=== PATIENT | female | born 1955 | race American Indian/Alaskan Native ===

== ENCOUNTER 2018-02-07 11:15 | Inpatient (IN) | payer OTHER ==
[2018-02-07 11:19] VITALS: BMI 17.7
--- NOTE | 2018-02-07 12:29 | ED PDOC ---
Arrival/HPI - General Chief Complaint: Lower Extremity Problem/Injury Time Seen by Provider: 02/07/18 11:47 Historian: Patient, Family (sister) - History of Present Illness Narrative History of Present Illness (Text): 02/07/18 12:26 62 year old female smoker, whose past medical history includes a alcohol abuse, heart defibrillator, and CVA, who presents to the ED complaining of swollen legs and abdomen x 1 week. Patient notes associated dyspnea upon exertion. Patient denies any fever, chills, nausea, vomiting, chest pain, abdominal pain, back pain, or neck pain. Time/Duration: 1 week Symptom Onset: Gradual Symptom Course: Unchanged Activities at Onset: Light Context: Home Past Medical History - Provider Review Nursing Documentation Reviewed: Yes - Infectious Disease Hx of Infectious Diseases: None - Tetanus Immunization Tetanus Immunization: Unknown - Cardiac Hx Cardiac Disorders: Yes Hx Hypertension: Yes Hx Pacemaker: Yes (with defibrillator/L side) - Pulmonary Hx Respiratory Disorders: Yes Hx Asthma: Yes - Neurological Hx Neurological Disorder: Yes HX Cerebrovascular Accident: Yes Hx Transient Ischemic Attacks (TIA): Yes - HEENT Hx HEENT Disorder: No - Renal Hx Renal Disorder: No - Endocrine/Metabolic Hx Endocrine Disorders: No - Hematological/Oncological Hx Blood Disorders: No - Integumentary Hx Dermatological Disorder: No - Musculoskeletal/Rheumatological Hx Musculoskeletal Disorders: No - Gastrointestinal Hx Gastrointestinal Disorders: No Other/Comment: ALCOHOLIC "FORMER DRINKER" PER PT. - Genitourinary/Gynecological Hx Genitourinary Disorders: No - Psychiatric Hx Psychophysiologic Disorder: No Hx Substance Use: No - Surgical History Other/Comment: L side pacemaker/defibrillator - Anesthesia Hx Anesthesia: Yes Hx Anesthesia Reactions: No Family/Social History - Physician Review Nursing Documentation Reviewed: Yes Family/Social History: Unknown Family HX Smoking Status: Light Smoker < 10 Cigarettes Daily Hx Alcohol Use: Yes Frequency of alcohol use: Daily Hx Substance Use: No Allergies/Home Meds Allergies/Adverse Reactions: Allergies No Known Allergies Allergy (Verified 11/19/17 08:17) Home Medications: Home Meds Medication Instructions Recorded Confirmed Aspirin [Aspirin Chewable] 1 tab PO DAILY 02/07/18 02/07/18 Carvedilol [Coreg] 1 tab PO BID 02/07/18 02/07/18 Ipratropium [Atrovent HFA] 2 puff IH QID 02/07/18 02/07/18 hydroCHLOROthiazide [Hydrodiuril] 1 tab PO DAILY 02/07/18 02/07/18 Review of Systems - Physician Review All systems were reviewed & negative as marked: Yes - Review of Systems Constitutional: Normal Eyes: Normal ENT: Normal Respiratory: Normal. absent: SOB, Cough Cardiovascular: Normal. absent: Chest Pain Gastrointestinal: Normal. absent: Abdominal Pain, Diarrhea, Nausea, Vomiting Genitourinary Female: Normal. absent: Dysuria, Frequency Musculoskeletal: Other (swollen legs and abdomen). absent: Back Pain, Neck Pain Skin: Normal. absent: Rash Neurological: Normal. absent: Headache Endocrine: Normal Hemo/Lymphatic: Normal Psychiatric: Normal Physical Exam Vital Signs Reviewed: Yes Vital Signs Temp Pulse Resp BP Pulse Ox 02/07/18 11:26 98.3 F 73 18 97/61 L 98 Temperature: Afebrile Blood Pressure: Hypotensive Pulse: Regular Respiratory Rate: Normal Appearance: Positive for: Well-Appearing, Non-Toxic, Comfortable Pain Distress: None Mental Status: Positive for: Alert and Oriented X 3 - Systems Exam Head: Present: Atraumatic, Normocephalic Pupils: Present: PERRL Extroacular Muscles: Present: EOMI Conjunctiva: Present: Normal Mouth: Present: Moist Mucous Membranes Neck: Present: Normal Range of Motion Respiratory/Chest: Present: Other (mild bilateral crackles at base). No: Respiratory Distress, Accessory Muscle Use Cardiovascular: Present: Regular Rate and Rhythm, Normal S1, S2. No: Murmurs Abdomen: Present: Distention. No: Tenderness, Peritoneal Signs Back: Present: Normal Inspection Upper Extremity: Present: Normal Inspection. No: Cyanosis, Edema Lower Extremity: Present: Edema (bilateral 2+ pitting edema) Neurological: Present: GCS=15, CN II-XII Intact, Speech Normal Skin: Present: Warm, Dry, Normal Color. No: Rashes Psychiatric: Present: Alert, Oriented x 3, Normal Insight, Normal Concentration Medical Decision Making ED Course and Treatment: 02/07/18 12:31 Impression: 62 year old female presents to the ED c/o swollen legs and abdomen. Plan: -- EKG -- Labs -- CXR -- US Lower extremities Progress Notes: 02/07/18 14:05 US Lower Extremities preliminary report, shows negative results for DVT. 02/07/18 15:12 CXR reviewed, shows: IMPRESSION: No active disease. 02/07/18 17:14 Case discussed with Cards: Dr. Kiran, who states given pt's low bp and Xray findings, Lasix should not be given at this time. States pt will likely need admission. Previous CBC shows hemoglobin per Cards was 8.3 a couple of months ago. No dark or bloody stool per pt. Anemia 2/2 Cirrhosis likely. 02/07/18 17:22 Medicaid pt admitted to hospitalist, Dr. Douglas 02/07/18 17:30 CT Abomen/Pelvis reviewed, shows: IMPRESSION: 1. Cirrhotic liver. Thrombosis of the splenic vein noted. 2. Evidence of chronic pancreatitis without acute pancreatitis. 3. Large volume intra-abdominal and pelvic ascites. 4. Diffuse cutaneous and subcutaneous edema/anasarca. US lower extremity reviewed, shows: IMPRESSION: No sonographic evidence for deep venous thrombosis in the visualized segments of both lower extremities. - Lab Interpretations Lab Results: 02/07/18 13:00 02/07/18 14:55 Lab Results 02/07/18 14:55: Sodium 139, Potassium 3.6, Chloride 109 H, Carbon Dioxide 24, Anion Gap 10, BUN 14, Creatinine 1.0, Est GFR ( Amer) > 60, Est GFR (Non- Af Amer) 56, Random Glucose 76, Calcium 7.5 L, Magnesium 1.2 L, Total Bilirubin 0.8, AST 21, ALT 10, Alkaline Phosphatase 69, Troponin I < 0.01, NT-Pro-B Natriuret Pep 3780 H, Total Protein 5.9, Albumin 2.0 L, Globulin 3.9, Albumin/ Globulin Ratio 0.5 L, Lipase < 10 L 02/07/18 13:00: WBC 8.1, RBC 2.63 L, Hgb 7.2 L, Hct 21.0 L, MCV 79.8 L, MCH 27.4 , MCHC 34.3, RDW 19.9 H, Plt Count 235, MPV 11.1 H, Gran % 57.5, Lymph % (Auto) 32.4, [place] % (Auto) 8.4 H, Eos % (Auto) 1.5, Baso % (Auto) 0.2, Gran # 4.66, Lymph # (Auto) 2.6, [place] # (Auto) 0.7 H, Eos # (Auto) 0.1, Baso # (Auto) 0.02 - RAD Interpretation Radiology Orders: 02/07/18 12:27 CHEST TWO VIEWS (PA/LAT) [RAD] Stat DUPLEX LOWER EXTRM VEIN BILAT [US] Stat 02/07/18 15:44 ABDOMEN & PELVIS [ABD & PELVIS IV CONTRAST ONLY] [CT] Stat - Medication Orders Current Medication Orders: Albuterol/Ipratropium (Duoneb 3 Mg/0.5 Mg (3 Ml) Ud) 3 ml IH Q6H PRN PRN Reason: Shortness of Breath Magnesium Sulfate (Magnesium Sulfate 2 Gm/50 Ml Water) 2 gm in 50 mls @ 50 mls/ hr IVPB ONCE ONE Stop: 02/07/18 19:05 Pantoprazole Sodium (Protonix Ec Tab) 40 mg PO DAILY MIN - Scribe Statement The provider has reviewed the documentation as recorded by the Scribjed Villalobos All medical record entries made by the Scribe were at my direction and personally dictated by me. I have reviewed the chart and agree that the record accurately reflects my personal performance of the history, physical exam, medical decision making, and the department course for this patient. I have also personally directed, reviewed, and agree with the discharge instructions and disposition. Disposition/Present on Arrival - Present on Arrival Any Indicators Present on Arrival: No History of DVT/PE: No History of Uncontrolled Diabetes: No Urinary Catheter: No History of Decub. Ulcer: No History Surgical Site Infection Following: None - Disposition Have Diagnosis and Disposition been Completed?: Yes Diagnosis: CHF exacerbation, Ascites, Anemia Disposition Time: 15:53 Patient Plan: Admission, Telemetry Condition: FAIR
[2018-02-07 13:23] LABS: BASO # 0.02 K/mm3 (0.0-2.0); BASO % 0.2 % (0.0-3.0); EOS # 0.1 (0.0-0.7); EOS % 1.5 % (1.5-5.0); GRAN # 4.66 (1.4-6.5); GRAN % 57.5 % (50.0-68.0); HEMOGLOBIN 7.2 g/dL (12.0-16.0); LYMPH # 2.6 (1.2-3.4); LYMPH % 32.4 % (22.0-35.0); MEAN CELL VOLUME 79.8 fl (80.0-105.0); MEAN CORPUSCULAR HEMOGLOBIN 27.4 pg (25.0-35.0); MEAN CORPUSCULAR HGB CONC 34.3 g/dl (31.0-37.0); MEAN PLATELET VOLUME 11.1 fl (7.0-11.0); MONO # 0.7 (0.1-0.6); MONO % 8.4 % (1.0-6.0); RBC 2.63 10^6/uL (3.5-6.1); RED CELL DISTRIBUTION WIDTH 19.9 % (11.5-14.5); WHITE BLOOD COUNT 8.1 10^3/ul (4.5-11.0)
--- NOTE | 2018-02-07 15:03 | RAD ---
Date of service: 02/07/2018 HISTORY: crackles, leg swelling COMPARISON: 09/27/2015 TECHNIQUE: Chest PA and lateral FINDINGS: LUNGS: No active pulmonary disease. PLEURA: No significant pleural effusion identified. No pneumothorax apparent. CARDIOVASCULAR: Mild cardiomegaly. Dual lead pacemaker OSSEOUS STRUCTURES: No significant abnormalities. VISUALIZED UPPER ABDOMEN: Normal. OTHER FINDINGS: None. IMPRESSION: No active disease.
[2018-02-07 15:08] LABS: ALB/GLOB RATIO 0.5 (1.1-1.8); ALT/SGPT 10 U/L (7-56); AST/SGOT 21 U/L (14-36); BLOOD UREA NITROGEN 14 mg/dL (7-21); CALCIUM 7.5 mg/dL (8.4-10.5); GFR AFRICAN-AMERICAN > 60; GFR NON-AFRICAN AMERICAN 56
--- NOTE | 2018-02-07 15:19 | CARD ---
APPROVED REPORT Date of service: 02/07/2018 EKG Measurement Heart [id number] <Conclusion> Demand pacemaker, interpretation is based on intrinsic rhythm Sinus rhythm Left bundle branch block Abnormal ECG
[2018-02-07 15:21] LABS: LIPASE < 10 U/L (23-300)
[2018-02-07] MEDS ORDERED: Iohexol 350 MG/100 ML VIAL ONE (15:51)
[2018-02-07 16:31] LABS: B-TYPE NATRIURETIC PEPTIDE 3780 pg/mL (0-450)
[2018-02-07 16:56] LABS: TROPONIN I < 0.01 ng/mL
--- NOTE | 2018-02-07 17:07 | CT ---
Date of service: 02/07/2018 PROCEDURE: CT Abdomen and Pelvis with contrast HISTORY: Distention and right lower quadrant pain. COMPARISON: 12/24/2013 CT abdomen and pelvis. TECHNIQUE: Contrast dose: 100 cc Omnipaque 350 Radiation dose: Total exam DLP = 280.32 mGy-cm. This CT exam was performed using one or more of the following dose reduction techniques: Automated exposure control, adjustment of the mA and/or kV according to patient size, and/or use of iterative reconstruction technique. FINDINGS: LOWER THORAX: Unremarkable. LIVER: Cirrhotic appearing liver. Liver has decreased in size/ volume in the contour is substantially more irregular. Patent main portal vein and intrahepatic portal branches. Thrombosis of the splenic vein. Incidental finding(s): Subcentimeter cyst right hepatic lobe. GALLBLADDER AND BILE DUCTS: Unremarkable. PANCREAS: CT manifestations of chronic pancreatitis including extensive calcifications and markedly atrophic gland. No evidence of superimposed acute ascites. SPLEEN: Unremarkable. ADRENALS: Unremarkable. No mass. KIDNEYS AND URETERS: Unremarkable. No hydronephrosis. No solid mass. VASCULATURE: Unremarkable. No aortic aneurysm. BOWEL: Unremarkable. No obstruction. No gross mural thickening. APPENDIX: Normal appendix. PERITONEUM: Large volume intra-abdominal and pelvic ascites. Place LYMPH NODES: Unremarkable. No enlarged lymph nodes. BLADDER: Unremarkable. REPRODUCTIVE: Unremarkable. BONES: No acute fracture. OTHER FINDINGS: Diffuse anasarca, severe. IMPRESSION: 1. Cirrhotic liver. Thrombosis of the splenic vein noted. 2. Evidence of chronic pancreatitis without acute pancreatitis. 3. Large volume intra-abdominal and pelvic ascites. 4. Diffuse cutaneous and subcutaneous edema/anasarca.
--- NOTE | 2018-02-07 17:27 | US ---
HISTORY: Leg pain and swelling. Evaluate for DVT PHYSICIAN(S): Kwan Morgan MD. TECHNIQUE: Duplex sonography and color-flow Doppler with graded compression were used to evaluate the deep venous systems of both lower extremities. The exam is limited by edema. FINDINGS: The visualized deep venous systems of both lower extremities are sonographically normal and compressible. Normal wave forms and augmentation are seen. There is no sonographic evidence for deep venous thrombosis in the visualized segments of both lower extremities. IMPRESSION: No sonographic evidence for deep venous thrombosis in the visualized segments of both lower extremities.
[2018-02-07] MEDS ORDERED: Magnesium Oxide 400 mg Tab UD PO SCH (18:00)
[2018-02-07] MEDS ORDERED: Magnesium Sulfate 2 gm/50 ml 2 GM/50 ML BAG IVPB ONE (18:06)
[2018-02-07] MEDS ORDERED: Albuterol-Ipratrop 3 mg / 0.5 (3 ml) UD IH PRN (18:12)
--- NOTE | 2018-02-07 18:42 | CP.PCM.HP ---
<Zane Leos - Last Filed: 02/07/18 18:50> History of Present Illness - History of Present Illness History of Present Illness: Zane Leos, PGY-1 History and Physical for Hospitalist Service CC: Bilateral leg swelling HPI: Ms. Nowak is a 62 year old female with a PMHx of asthma, anemia, ascites, cardiomyopathy s/p pacemaker placement in [facility] in 2004, and CVA 13 years ago who presented with complaints of bilateral leg swelling for one and half weeks. Patient was accompanied by her two sisters, who helped provide the history. Patient states that leg swelling has worsened over that time period. Patient states that she has been unable to walk the 6 blocks she was accustomed to over the past few months, which she would generally walk alone in the past. EF was reported as 16% per patient as recorded in 10/17 endoscopy report, but no echo report is available. Currently, patient reports some abdominal fullness and 4 nonbloody bowel movements a day, and denies fevers, chills, dizziness, headaches, vision changes, shortness of breath, chest pain, palpitations, nausea , vomiting, constipation, rash, recent travel, and sick contacts. Patient admits to good appetite but 25-30 lb weight loss over last 3 months. Patient has never had an endocopy or colonoscopy. A full 12 Point ROS was completed and negative except as described above. PMD: Dr. Haro Cardio: Dr. Don PMHx: As above PSHx: Pacemaker placement Allergies: NKDA SocialHx: smokes 2 packs a week for decades, substantial ETOH consumption, last etoh 2 weeks ago per patient, Denies IVDU. Lives with son and daughter in law in [place] since May when Fam Hx: Mom had DM, COPD, ESRD, and HTN Meds: Spiriva, HCTZ 25 daily, Atrovent, Carvedilol 25 BID, Aspirin 81 Present on Admission - Present on Admission Any Indicators Present on Admission: No Review of Systems - Review of Systems All systems: reviewed and no additional remarkable complaints except (as described in HPI.) Past Patient History - Infectious Disease Hx of Infectious Diseases: None - Tetanus Immunizations Tetanus Immunization: Unknown - Past Medical History & Family History Past Medical History?: Yes - Past Social History Smoking Status: Light Smoker < 10 Cigarettes Daily - CARDIAC Hx Cardiac Disorders: Yes Hx Hypertension: Yes Hx Pacemaker: Yes (with defibrillator/L side) - PULMONARY Hx Respiratory Disorders: Yes Hx Asthma: Yes - NEUROLOGICAL Hx Neurological Disorder: Yes HX Cerebrovascular Accident: Yes Hx Transient Ischemic Attacks (TIA): Yes - HEENT Hx HEENT Problems: No - RENAL Hx Chronic Kidney Disease: No - ENDOCRINE/METABOLIC Hx Endocrine Disorders: No - HEMATOLOGICAL/ONCOLOGICAL Hx Blood Disorders: No - INTEGUMENTARY Hx Dermatological Problems: No - MUSCULOSKELETAL/RHEUMATOLOGICAL Hx Musculoskeletal Disorders: No - GASTROINTESTINAL Hx Gastrointestinal Disorders: No Other/Comment: ALCOHOLIC "FORMER DRINKER" PER PT. - GENITOURINARY/GYNECOLOGICAL Hx Genitourinary Disorders: No - PSYCHIATRIC Hx Psychophysiologic Disorder: No Hx Substance Use: No - SURGICAL HISTORY Other/Comment: L side pacemaker/defibrillator - ANESTHESIA Hx Anesthesia: Yes Hx Anesthesia Reactions: No Meds Allergies/Adverse Reactions: Allergies Allergy/AdvReac Type Severity Reaction Status Date / Time No Known Allergies Allergy Verified 11/19/17 08:17 Physical Exam - Constitutional Appears: Well, Non-toxic, No Acute Distress, Older Than Stated Age - Head Exam Head Exam: ATRAUMATIC, NORMAL INSPECTION, NORMOCEPHALIC - Eye Exam Eye Exam: Normal appearance. absent: Periorbital swelling Pupil Exam: NORMAL ACCOMODATION - ENT Exam ENT Exam: Mucous Membranes Moist, Normal Exam - Neck Exam Neck exam: Positive for: Normal Inspection. Negative for: Lymphadenopathy, Tenderness, Thyromegaly - Respiratory Exam Respiratory Exam: Decreased Breath Sounds, Clear to Auscultation Bilateral, NORMAL BREATHING PATTERN. absent: Rales, Rhonchi, Wheezes, Respiratory Distress , Stridor Additional comments: mild crackles in L lung base - Cardiovascular Exam Cardiovascular Exam: RRR, +S1, +S2 Additional comments: Pacemaker placement in upper L chest - GI/Abdominal Exam GI & Abdominal Exam: Distended, Hyperactive Bowel Sounds. absent: Bruit, Firm, Guarding, Hypoactive Bowel Sounds, Mass, Pulsatile Mass, Rebound, Soft, Tenderness Additional comments: No fluid wave appreciated. - Extremities Exam Extremities exam: Positive for: joint swelling, pedal edema (1+ bilaterally), pedal pulses present (DP and TA 2+). Negative for: calf tenderness, tenderness - Back Exam Back exam: NORMAL INSPECTION - Neurological Exam Neurological exam: Alert, CN II-XII Intact, Oriented x3 - Psychiatric Exam Psychiatric exam: Normal Affect, Normal Mood - Skin Skin Exam: Dry, Intact, Normal Color, Warm Results - Vital Signs Recent Vital Signs: Last Vital Signs Temp 98.3 F 02/07/18 11:26 Pulse 73 02/07/18 11:26 Resp 18 02/07/18 11:26 BP 97/61 L 02/07/18 11:26 Pulse Ox 98 02/07/18 11:26 - Labs Result Diagrams: 02/07/18 13:00 02/07/18 14:55 Assessment & Plan - Assessment and Plan (Free Text) Assessment: Assessment: 62 year old Female with PMHx of asthma, pacemaker placement 2/2 cardiomyopathy, CVA 13 years ago who presented with leg swelling and abdominal distension. Plan: Ascites likely 2/2 ETOH vs Cardiomyopathy CXR showed no active disease CT Abd/Pelvis showed a cirrhotic liver which has decreased in size as compared to previous and countour is more irregular. Thrombosis of the splenic vein. Extensive calcifications and markidly atrophic pancreas. Large volume intra- abdominal and pelvic ascites in peritoneum. Diffuse anasarca. Lipase <10 likely due to pancreas that no longer produces active enzymes f/u UDS f/u serum ETOH, [facility] protocol GI consult ([place]) placed- appreciate recommendations [facility] protocol f/u AM labs, Mg, Phos Hypotension 2/2 Cardiomyopathy currently 107/51, HR 66, 98% on RA EKG showed Sinus rhythm @ 64 with demand pacemaker ProBNP 3780 16% EF reported in 10/17 Troponin neg x1 transfer to [facility] Diarrhea 4 BM reported daily likely 2/2 lack of pancreatic enzymes f/u c diff toxin, O&P, fecal leukocytes and stool culture RN communication to count and quantify stools placed Hypomagnesemia 1.2 on admission 2 g IVP Mg sulfate given in ED f/u AM labs Leg Pain Duplex U/S extremity showed no evidence of DVT in either lower extremities will continue to monitor Microcytic Anemia RBC 2.63, Hgb 7.2, MCV 79 will monitor Hgb for possible transfusions Type and screen placed f/u FOBT f/u coag studies fall precautions in place Pseudohypocalcemia Ca corrected: 8.7 Alb: 2.0 likely 2/2 poor oral intake as described by sisters of patient Asthma duonebs GI/DVT Ppx Protonix 40 SCD's No A/C warranted due to possible bleed Patient seen, case reviewed, and plan discussed with Dr. Douglas. Zane eLos, PGY-1 <Gee Douglas - Last Filed: 02/09/18 13:18> Results - Vital Signs Recent Vital Signs: Last Vital Signs Temp 98.7 F 02/09/18 11:28 Pulse 65 02/09/18 11:28 Resp 18 02/09/18 11:28 BP 114/68 02/09/18 11:28 Pulse Ox 100 02/09/18 00:01 - Labs Result Diagrams: 02/09/18 07:00 02/09/18 07:00 Labs: Laboratory Results - last 24 hr 02/08/18 02/08/18 02/09/18 01:50 19:45 06:35 WBC 9.3 RBC 2.90 L Hgb 8.0 L Hct 23.1 L MCV 79.7 L MCH 27.6 MCHC 34.6 RDW 18.3 H Plt Count 201 MPV 9.7 Gran % 50.9 Lymph % (Auto) 36.0 H [place] % (Auto) 11.2 H Eos % (Auto) 1.6 Baso % (Auto) 0.3 Gran # 4.73 Lymph # (Auto) 3.3 [place] # (Auto) 1.0 H Eos # (Auto) 0.2 Baso # (Auto) 0.03 Sodium Potassium Chloride Carbon Dioxide Anion Gap BUN Creatinine Est GFR ( Amer) Est GFR (Non-Af Amer) Random Glucose Calcium Magnesium Total Bilirubin AST ALT Alkaline Phosphatase Total Protein Albumin Globulin Albumin/Globulin Ratio Urine Color Yellow Urine Appearance Sl cloudy Urine pH 7.0 Ur Specific [place] 1.010 Urine Protein Negative Urine Glucose (UA) Negative Urine Ketones Negative Urine Blood Trace-lysed H Urine Nitrate Negative Urine Bilirubin Negative Urine Urobilinogen 0.2 Ur Leukocyte Esterase Small H Urine RBC 1 - 3 Urine WBC 10 - 15 Ur Epithelial Cells 1 - 3 Amorphous Sediment Large Urine Bacteria Few Crossmatch See Detail 02/09/18 02/09/18 07:00 07:00 WBC 8.8 RBC 2.95 L Hgb 8.1 L Hct 23.5 L MCV 79.7 L MCH 27.5 MCHC 34.5 RDW 18.4 H Plt Count 205 MPV 10.2 Gran % 48.6 L Lymph % (Auto) 35.7 H [place] % (Auto) 13.4 H Eos % (Auto) 2.0 Baso % (Auto) 0.3 Gran # 4.26 Lymph # (Auto) 3.1 [place] # (Auto) 1.2 H Eos # (Auto) 0.2 Baso # (Auto) 0.03 Sodium 139 Potassium 3.8 Chloride 108 H Carbon Dioxide 27 Anion Gap 8 L BUN 10 Creatinine 1.0 Est GFR ( Amer) > 60 Est GFR (Non-Af Amer) 56 Random Glucose 85 Calcium 7.7 L Magnesium 1.7 Total Bilirubin 0.5 AST 17 ALT 15 Alkaline Phosphatase 70 Total Protein 5.6 L Albumin 1.8 L Globulin 3.8 Albumin/Globulin Ratio 0.5 L Urine Color Urine Appearance Urine pH Ur Specific [place] Urine Protein Urine Glucose (UA) Urine Ketones Urine Blood Urine Nitrate Urine Bilirubin Urine Urobilinogen Ur Leukocyte Esterase Urine RBC Urine WBC Ur Epithelial Cells Amorphous Sediment Urine Bacteria Crossmatch Attending/Attestation - Attestation I have personally seen and examined this patient.: Yes I have fully participated in the care of the patient.: Yes I have reviewed all pertinent clinical information: Yes Notes (Text): 02/09/18 13:11 Attending note ; Patient seen and examined with resident in ER. Patient's sisters by the bedside. Patient is a 62 year old female with the PMHx of asthma, anemia, ascites, active smoking , alcohol abuse , dilated cardiomyopathy s/p pacemaker placement in [facility] in 2004, EF of 16% and CVA 13 years ago who presented with complaints of bilateral leg swelling. Acute on chronic systolic CHF exacerbation. Started on Lasix. Blood pressure is on the lower side. Monitor closely. strict Input and output. Daily weight ordered. Dietary education given. Cardiology evaluation with Dr. Don requested. Severe anemia; type and crossmatch done. Transfuse as needed. Patient did not get anemia workup secondary to advanced cardiomyopathy. GI evaluation requested. Advanced cirrhosis with ascites; secondary to chronic alcohol abuse. Complete alcohol cessation is strongly advised. Active smoking smoking cessation is strongly advised. Prognosis is poor. The diagnosis and treatment option discussed with patient and patient's sisters in detail. Upon discharge the patient will follow-up with PMD Dr. Haro. 02/09/18 13:16 02/09/18 13:17
[2018-02-07 23:08] LABS: BARBITURATES, UR NEGATIVE (NEGATIVE); BENZODIAZEPINES, UR NEGATIVE (NEGATIVE); OPIATES, UR NEGATIVE (NEGATIVE); PHENCYCLIDINE, UR NEGATIVE (NEGATIVE)
[2018-02-08 07:05] LABS: INR 1.42; PROTHROMBIN TIME 16.5 SECONDS (9.4-12.5)
[2018-02-08 07:07] LABS: BASO # 0.03 K/mm3 (0.0-2.0); BASO % 0.4 % (0.0-3.0); EOS # 0.1 (0.0-0.7); EOS % 1.7 % (1.5-5.0); GRAN # 4.24 (1.4-6.5); GRAN % 52.3 % (50.0-68.0); LYMPH # 2.6 (1.2-3.4); LYMPH % 32.5 % (22.0-35.0); MEAN CELL VOLUME 79.1 fl (80.0-105.0); MEAN CORPUSCULAR HEMOGLOBIN 27.4 pg (25.0-35.0); MEAN CORPUSCULAR HGB CONC 34.6 g/dl (31.0-37.0); MEAN PLATELET VOLUME 10.6 fl (7.0-11.0); MONO # 1.1 (0.1-0.6); MONO % 13.1 % (1.0-6.0); RBC 2.3 10^6/uL (3.5-6.1); RED CELL DISTRIBUTION WIDTH 20.1 % (11.5-14.5); WHITE BLOOD COUNT 8.1 10^3/ul (4.5-11.0)
[2018-02-08 07:08] LABS: PARTIAL THROMBOPLASTIN TIME 45.5 Seconds (25.1-36.5)
[2018-02-08 07:32] LABS: HEMOGLOBIN 6.3 g/dL (12.0-16.0)
[2018-02-08 07:43] LABS: ALB/GLOB RATIO 0.5 (1.1-1.8); ALBUMIN 1.6 g/dL (3.0-4.8); CALCIUM 7.7 mg/dL (8.4-10.5)
[2018-02-08] MEDS ORDERED: Magnesium 2 gm/50 ml NS 2 GM/50 ML BAG IVPB ONE (07:55)
[2018-02-08] MEDS ORDERED: Potassium Chloride 20 mEq ER Tab PO STA ×2 (08:06)
[2018-02-08] MEDS ORDERED: Potassium Chloride 20 mEq ER Tab PO ONE (08:07)
--- NOTE | 2018-02-08 08:40 | CP.PCM.CON ---
History of Present Illness - History of Present Illness History of Present Illness: Gastroenterology Consult Note for Dr. Avery Clemenst PGY2 Reason for consult: Ascites Patient is a 62 F with a history of CHF EF 16% s/p defibrillator, CVA, alcohol abuse, tobacco abuse, who presents with complaints of bilateral lower extremity and abdominal swelling which began 2 weeks ago. Patient states she has had this in the past but normally it resolves in a short amount time. Patient states that she has been unable to walk the 6 blocks she was accustomed to over the past few months, which she would generally walk alone in the past. Patient states she has not noted any changes in appetitie or bowel movements. Denies fevers, chills, dizziness, headaches, vision changes, shortness of breath, chest pain, palpitations, nausea, vomiting, constipation, rash, recent travel, and sick contacts. Patient admits to good appetite but 25-30 lb weight loss over last 3 months. Patient was scheduled for a colonoscopy 2 months ago however it was cancelled due to her H&H. PMD: Dr. Haro Cardio: Dr. Don PMHx: As above PSHx: Defibrillator placement Allergies: NKDA SocialHx: smokes 2 packs a week for decades, consumes 1/2 pint rum daily, last etoh 2 weeks ago per patient, Denies IVDU- however has a history of crack use. Lives with daughter in law in [place], son is currently in [facility] for services. Mother 6 months ago, in May. Patient states she has her sister which takes her to all her doctor appointments ; states she has a strong family support system. Fam Hx: Mom had DM, COPD, ESRD, and HTN Meds: Spiriva, HCTZ 25 daily, Atrovent, Carvedilol 25 BID, Aspirin 81 Review of Systems - Constitutional Constitutional: absent: Chills, Fever - EENT Eyes: absent: Change in Vision Ears: absent: Tinnitus Additional comments: icterus - Cardiovascular Cardiovascular: absent: Chest Pain, Dyspnea - Respiratory Respiratory: absent: Cough, Dyspnea - Gastrointestinal Gastrointestinal: absent: Abdominal Pain, Diarrhea, Hematemesis, Hematochezia, Melena, Nausea, Vomiting - Genitourinary Genitourinary: absent: Dysuria - Musculoskeletal Musculoskeletal: absent: Back Pain - Integumentary Integumentary: Striae, Swelling. absent: Jaundice - Neurological Neurological: absent: Dizziness, Numbness, Tremor - Psychiatric Psychiatric: absent: Anxiety, Confusion - Endocrine Endocrine: absent: Fatigue Past Patient History - Infectious Disease Hx of Infectious Diseases: None - Tetanus Immunizations Tetanus Immunization: Unknown - Past Medical History & Family History Past Medical History?: Yes - Past Social History Smoking Status: Light Smoker < 10 Cigarettes Daily - CARDIAC Hx Cardiac Disorders: Yes Hx Hypertension: Yes Hx Pacemaker: Yes (with defibrillator/L side) - PULMONARY Hx Respiratory Disorders: Yes Hx Asthma: Yes Hx Bronchitis: Yes - NEUROLOGICAL Hx Neurological Disorder: Yes HX Cerebrovascular Accident: Yes - HEENT Hx HEENT Problems: No - RENAL Hx Chronic Kidney Disease: No - ENDOCRINE/METABOLIC Hx Endocrine Disorders: No - HEMATOLOGICAL/ONCOLOGICAL Hx Blood Disorders: No - INTEGUMENTARY Hx Dermatological Problems: No - MUSCULOSKELETAL/RHEUMATOLOGICAL Hx Musculoskeletal Disorders: No Hx Falls: Yes - GASTROINTESTINAL Hx Gastrointestinal Disorders: No - GENITOURINARY/GYNECOLOGICAL Hx Genitourinary Disorders: No - PSYCHIATRIC Hx Psychophysiologic Disorder: No Hx Substance Use: No - SURGICAL HISTORY Hx Surgeries: Yes Other/Comment: L side pacemaker/defibrillator - ANESTHESIA Hx Anesthesia: Yes Hx Anesthesia Reactions: No Meds Allergies/Adverse Reactions: Allergies Allergy/AdvReac Type Severity Reaction Status Date / Time No Known Allergies Allergy Verified 11/19/17 08:17 - Medications Medications: Current Medications Albuterol/Ipratropium (Duoneb 3 Mg/0.5 Mg (3 Ml) Ud) 3 ml IH Q6H PRN PRN Reason: Shortness of Breath Magnesium 2 gm/50 ml NS (Magnesium Sulfate 2 Gm/50 Ml Ns) 2 gm in 50 mls @ 50 mls/hr IVPB ONCE ONE Stop: 02/08/18 08:54 Pantoprazole Sodium (Protonix Ec Tab) 40 mg PO DAILY MIN Physical Exam - Head Exam Head Exam: ATRAUMATIC, NORMAL INSPECTION, NORMOCEPHALIC Additional comments: negative for temporal wasting - Eye Exam Eye Exam: EOMI, Normal appearance - ENT Exam ENT Exam: Mucous Membranes Moist, Normal Exam - Neck Exam Neck exam: Positive for: Normal Inspection - Respiratory Exam Respiratory Exam: Rales, NORMAL BREATHING PATTERN - Cardiovascular Exam Cardiovascular Exam: REGULAR RHYTHM, +S1, +S2 - GI/Abdominal Exam GI & Abdominal Exam: Distended, Normal Bowel Sounds, Soft. absent: Firm, Guarding, Tenderness - Extremities Exam Extremities exam: Positive for: normal inspection. Negative for: calf tenderness, pedal edema Additional comments: negative for clubbing - Back Exam Back exam: NORMAL INSPECTION - Neurological Exam Neurological exam: Alert, CN II-XII Intact, Oriented x3 - Skin Skin Exam: Intact, Normal Color, Warm Additional comments: negative for holguin erythema, spider angiomatas, jaundice Results - Vital Signs Recent Vital Signs: Last Vital Signs Temp 98.6 F 02/08/18 06:00 Pulse 65 02/08/18 06:00 Resp 18 02/08/18 06:00 BP 124/69 02/08/18 06:00 Pulse Ox 98 02/08/18 06:00 - Labs Result Diagrams: 02/08/18 06:45 02/08/18 06:45 Labs: Laboratory Results - last 24 hr 02/07/18 02/08/18 02/08/18 22:30 01:50 06:45 WBC 8.1 RBC 2.30 L Hgb 6.3 L* Hct 18.2 L* MCV 79.1 L MCH 27.4 MCHC 34.6 RDW 20.1 H Plt Count 228 MPV 10.6 Gran % 52.3 Lymph % (Auto) 32.5 [place] % (Auto) 13.1 H Eos % (Auto) 1.7 Baso % (Auto) 0.4 Gran # 4.24 Lymph # (Auto) 2.6 [place] # (Auto) 1.1 H Eos # (Auto) 0.1 Baso # (Auto) 0.03 PT INR APTT Sodium Potassium Chloride Carbon Dioxide Anion Gap BUN Creatinine Est GFR ( Amer) Est GFR (Non-Af Amer) Random Glucose Calcium Phosphorus Magnesium Total Bilirubin AST ALT Alkaline Phosphatase Total Protein Albumin Globulin Albumin/Globulin Ratio Urine Opiates Screen Negative Urine Methadone Screen Negative Ur Barbiturates Screen Negative Ur Phencyclidine Scrn Negative Ur Amphetamines Screen Negative U Benzodiazepines Scrn Negative U Oth Cocaine Metabols Negative U Cannabinoids Screen Negative Blood Type B POSITIVE Blood Type Confirm Antibody Screen Negative Crossmatch See Detail BBK History Checked No verified bt 02/08/18 02/08/18 02/08/18 06:45 06:45 06:45 WBC RBC Hgb Hct MCV MCH MCHC RDW Plt Count MPV Gran % Lymph % (Auto) [place] % (Auto) Eos % (Auto) Baso % (Auto) Gran # Lymph # (Auto) [place] # (Auto) Eos # (Auto) Baso # (Auto) PT 16.5 H INR 1.42 APTT 45.5 H Sodium 138 Potassium 3.2 L Chloride 110 H Carbon Dioxide 25 Anion Gap 6 L BUN 12 Creatinine 1.2 Est GFR ( Amer) 55 Est GFR (Non-Af Amer) 45 Random Glucose 71 Calcium 7.7 L Phosphorus 3.6 Magnesium 1.5 L Total Bilirubin 0.6 AST 18 ALT 17 Alkaline Phosphatase 62 Total Protein 5.3 L Albumin 1.6 L Globulin 3.6 Albumin/Globulin Ratio 0.5 L Urine Opiates Screen Urine Methadone Screen Ur Barbiturates Screen Ur Phencyclidine Scrn Ur Amphetamines Screen U Benzodiazepines Scrn U Oth Cocaine Metabols U Cannabinoids Screen Blood Type Blood Type Confirm B POSITIVE Antibody Screen Crossmatch BBK History Checked Assessment & Plan - Assessment and Plan (Free Text) Assessment: Patient is a 62 F with a history of CHF EF 16% s/p defibrillator, CVA, alcohol abuse, tobacco abuse, who presents with complaints of bilateral lower extremity and abdominal swelling which began 2 weeks ago found to have ascites and cirrhosis on imaging. Plan: Ascites secondary to hepatic vs cardiac etiology -Recommend Paracentesis -Albumin, cell count, Culture, Total protein of ascitic fluid Anemia -Rectal exam unremarkable -Transfuse as needed -Patient will need EGD when medically optimized
[2018-02-08] MEDS: Pantoprazole 40 mg EC Tab PO SCH (09:32)
[2018-02-08] MEDS: Magnesium Oxide 400 mg Tab UD PO SCH ×2 (09:32→18:24)
--- NOTE | 2018-02-08 12:40 | CP.PCM.PN ---
Addendum entered and electronically signed by Haley Gomez DO 02/08/18 13:49: Original Note: <Haley Gomez - Last Filed: 02/08/18 13:45> Subjective - Date & Time of Evaluation Date of Evaluation: 02/08/18 Time of Evaluation: 12:37 - Subjective Subjective: Haley Gomez PGY1 Progress Note for Dr. Douglas Ms. Nowak was seen at bedside this morning. She reports b/l thigh swelling for the past 2 weeks. She denies any pain or difficulty walking. She also reports some abdominal distention, and denies ever receiving a paracentesis in the past. She reports her last BM yesterday was normal, non watery. She denies any shortness of breath, dizziness, chest pain, abdominal pain, nausea, vomiting, diarrhea, or blood in the stool. Objective - Vital Signs/Intake and Output Vital Signs (last 24 hours): Temp Pulse Resp BP Pulse Ox 98.4 F 71 18 104/61 98 02/08/18 11:58 02/08/18 11:58 02/08/18 11:58 02/08/18 11:58 02/08/18 06:00 Intake and Output: 02/08/18 02/08/18 06:59 18:59 Intake Total 50 320 Output Total 700 Balance 50 -380 - Medications Medications: Current Medications Albuterol/Ipratropium (Duoneb 3 Mg/0.5 Mg (3 Ml) Ud) 3 ml IH Q6H PRN PRN Reason: Shortness of Breath Magnesium Oxide (Mag-Ox) 400 mg PO BID [facility] Last Admin: 02/08/18 09:32 Dose: 400 mg Pantoprazole Sodium (Protonix Ec Tab) 40 mg PO DAILY [facility] Last Admin: 02/08/18 09:32 Dose: 40 mg - Labs Labs: 02/08/18 06:45 02/08/18 06:45 PT 16.5 SECONDS (9.4-12.5) H 02/08/18 06:45 INR 1.42 02/08/18 06:45 APTT 45.5 Seconds (25.1-36.5) H 02/08/18 06:45 - Constitutional Appears: Well, No Acute Distress - Head Exam Head Exam: ATRAUMATIC, NORMOCEPHALIC - Eye Exam Eye Exam: EOMI, PERRL - ENT Exam ENT Exam: Mucous Membranes Moist - Respiratory Exam Respiratory Exam: Clear to Ausculation Bilateral, NORMAL BREATHING PATTERN. absent: Rales, Rhonchi, Wheezes, Stridor - Cardiovascular Exam Cardiovascular Exam: REGULAR RHYTHM, +S1, +S2 - GI/Abdominal Exam GI & Abdominal Exam: Distended, Soft, Normal Bowel Sounds. absent: Guarding, Tenderness Additional comments: striae noted on the abdomen. No incisions noted. - Rectal Exam Rectal Exam: NORMAL INSPECTION. absent: Bloody Stool, Hemorrhoids, Fecal Impaction - Extremities Exam Extremities Exam: Normal Inspection. absent: Joint Swelling, Pedal Edema, Tenderness - Neurological Exam Neurological Exam: Alert, Awake, Oriented x3 - Psychiatric Exam Psychiatric exam: Normal Affect, Normal Mood - Skin Skin Exam: Normal Color Assessment and Plan - Assessment and Plan (Free Text) Assessment: 62 year old Female with PMHx of asthma, pacemaker placement 2/2 cardiomyopathy, CVA 13 years ago who presented with leg swelling and abdominal distension. Plan: Microcytic Anemia - RBC 2.3, H/H 6.3/18.2, MCV 79.1 - pt asymptomatic - 1 unit PRBC given - f/u CBC 8pm 02/08 - f/u FOBT - f/u coag studies - fall precautions in place Ascites likely 2/2 ETOH vs Cardiomyopathy - CXR: no active disease - CT Abd/Pelvis: cirrhotic liver which has decreased in size as compared to previous and countour is more irregular. Thrombosis of the splenic vein. Extensive calcifications and markidly atrophic pancreas. Large volume intra- abdominal and pelvic ascites in peritoneum. Diffuse anasarca. - distended abdomen on physical exam, denies previous paracentesis - Lipase <10 likely due to pancreas that no longer produces active enzymes - UDS negative - serum ETOH negative - CIWA protocol 0 - lasix 20mg daily - daily weights - GI consult: Dr. Varela - recommends paracentesis with total protein, albumin , cell count and culture Hypotension 2/2 Cardiomyopathy - currently 107/71, HR 60 - coreg held - lasix held as per cardio - EKG showed Sinus rhythm @ 64 with demand pacemaker - ECHO ordered as per cardio - ProBNP 3780 - 16% EF reported in 10/17 - Troponin neg x1 - continue on tele - Cardio consulted: jamaal Romero appreciated Diarrhea - 4 BM reported daily, pt denies diarrhea today - likely 2/2 lack of pancreatic enzymes - f/u c diff toxin, O&P, fecal leukocytes and stool culture - RN communication to count and quantify stools placed Hypomagnesemia - 1.5 today - repleted Hypokalemia - 3.2 today - repleted Leg Pain - Duplex U/S extremity showed no evidence of DVT in either lower extremities - no edema appreciated on exam - will continue to monitor Asthma - continue duonebs PRN GI/DVT Ppx Protonix 40 SCD's No A/C warranted due to possible bleed Patient seen, case reviewed, and plan discussed with Dr. Douglas. <Gee Douglas - Last Filed: 02/09/18 13:21> Objective - Vital Signs/Intake and Output Vital Signs (last 24 hours): Temp Pulse Resp BP Pulse Ox 98.7 F 65 18 114/68 100 02/09/18 11:28 02/09/18 11:28 02/09/18 11:28 02/09/18 11:28 02/09/18 00:01 Intake and Output: 02/09/18 02/09/18 06:59 18:59 Intake Total 360 Output Total 400 Balance -40 - Medications Medications: Current Medications Albuterol/Ipratropium (Duoneb 3 Mg/0.5 Mg (3 Ml) Ud) 3 ml IH Q6H PRN PRN Reason: Shortness of Breath Carvedilol (Coreg) 3.125 mg PO BID [facility] Last Admin: 02/09/18 10:28 Dose: 3.125 mg Furosemide (Lasix) 20 mg PO DAILY [facility] Last Admin: 02/09/18 10:28 Dose: 20 mg Magnesium Oxide (Mag-Ox) 400 mg PO BID [facility] Last Admin: 02/09/18 10:28 Dose: 400 mg Pantoprazole Sodium (Protonix Ec Tab) 40 mg PO DAILY [facility] Last Admin: 02/09/18 10:29 Dose: 40 mg Spironolactone (Aldactone) 25 mg PO BID [facility] Last Admin: 02/09/18 10:29 Dose: 25 mg - Labs Labs: 02/09/18 07:00 02/09/18 07:00 PT 16.5 SECONDS (9.4-12.5) H 02/08/18 06:45 INR 1.42 02/08/18 06:45 APTT 45.5 Seconds (25.1-36.5) H 02/08/18 06:45 Attending/Attestation - Attestation I have personally seen and examined this patient.: Yes I have fully participated in the care of the patient.: Yes I have reviewed all pertinent clinical information, including history, physical exam and plan: Yes Notes (Text): 02/09/18 13:18 Attending note ; Patient seen and examined with resident. Patient's sisters by the bedside. Patient is a 62 year old female with the PMHx of asthma, anemia, ascites, active smoking , alcohol abuse , dilated cardiomyopathy s/p pacemaker placement in [facility] in 2004, EF of 16% and CVA 13 years ago who presented with complaints of bilateral leg swelling. Acute on chronic systolic CHF exacerbation. Started on Lasix. Leg swelling is improving. DVT is negative. Dietary education given. Cardiology evaluation with Dr. Don requested. Severe anemia; 1 unit PRBC transfusion ordered. No active bleeding. Stool guaiac is negative. Case discussed with GI in detail. Advanced cirrhosis with ascites; secondary to chronic alcohol abuse. Complete alcohol cessation is strongly advised. CT scan reviewed with Dr. Kwan Morgan. We will monitor closely. Possible paracentesis if ascites is increasing. Currently patient is clinically stable. Active smoking; smoking cessation is strongly advised. Prognosis is poor. Upon discharge the patient will follow-up with PMD Dr. Haro.
--- NOTE | 2018-02-08 13:08 | CON ---
Copied To: Codey Don MD Attending MD: Codey Don MD DATE: 02/08/2018 INDICATIONS: Edema and ascites. HISTORY OF PRESENT ILLNESS: This is a 62-year-old woman with congestive cardiomyopathy and ICD who was admitted through the emergency room yesterday when she complained of several weeks of increasing lower extremity edema and increased abdominal girth. She also noted dyspnea on exertion walking outside for several blocks. There was no chest pain, orthopnea, PND, syncope, presyncope, lightheadedness, dizziness or vertigo. No palpitations, fever, chills, cough, sputum production or hemoptysis. No nausea, vomiting, diarrhea, constipation or melena. PAST MEDICAL HISTORY: Notable for congestive cardiomyopathy with a markedly reduced ejection fraction and an ICD implanted in [facility]. Recent ICD followup was unremarkable. She is a longtime drinker. She smokes. She has a history of stroke. CT scan demonstrated cirrhosis, thrombosis of the splenic vein and chronic pancreatitis as well. MEDICATIONS: At the time of admission include aspirin, Atrovent, Coreg, and hydrochlorothiazide. ALLERGIES: THERE WERE NO MEDICATION ALLERGIES REPORTED. SOCIAL HISTORY: She lives at home with her family. She continues to smoke. She continues to drink. FAMILY HISTORY: Notable for diabetes and hypertension as well as renal failure. REVIEW OF SYSTEMS: A 10-point review of systems is otherwise unremarkable except as noted above. This morning, she noticed improvement in the lower extremity edema. PHYSICAL EXAMINATION GENERAL: She is a well-developed woman, in no acute distress, lying in bed on telemetry. VITAL SIGNS: Notable for ventricular pacing. She is afebrile, blood pressure 124/69, respirations 18-20, O2 saturation 95%-98% on room air. HEENT: Reveals no neck vein distention, carotid bruits or thyromegaly. Mucous membranes moist. Conjunctivae pink. NECK: Supple. LUNG: Lung grijalva clear. HEART: Reveals a regular rhythm. ABDOMEN: Distended. There is ascitic fluid present. EXTREMITIES: Reveals mild to moderate edema of the shins to the ankles. NEUROLOGIC: She is awake, alert and oriented. PSYCHIATRIC: Normal as to mood and affect. SKIN: Warm and dry. No rash or cellulitis. LABORATORY AND IMAGING: EKG demonstrates a ventricular paced rhythm with atrial sensing. Chest x-ray reveals no active disease, ICD in place. A lower extremity venous Doppler study reveals no evidence of DVT. Abdomen and pelvis CT demonstrates cirrhotic liver, thrombosis of the splenic vein, chronic pancreatitis, large volume abdominal and pelvic ascites, diffuse cutaneous and subcutaneous edema, anasarca. IMPRESSION: Gerri Nowak is a 62-year-old woman with a lower extremity edema and ascites with history of congestive cardiomyopathy and apparent severe cirrhosis probably based on long-term alcohol abuse. She is a smoker with a history of a prior stroke. PLAN: At this time, she is admitted to telemetry. She will have a GI evaluation. She is found to have low potassium and magnesium levels, these are being replaced. She is anemic as well. At this time, she is getting potassium and magnesium replacement. She got one dose of Lasix. I will hold this for now. I will resume her Coreg 3.125 BID. We will monitor I's and O's, daily weights, check stool for occult blood, monitor labs, await GI evaluation. She has in the past been admonished to discontinue all alcohol and tobacco use; however, she has been unwilling up until this point. We will stress this again to her and her family. She can be out of bed to a chair. I will get an echocardiogram to update her LV function, which has been poor in the past. I will follow along with you and make additional recommendations based on her clinical course. Codey Don MD [place]
--- NOTE | 2018-02-08 14:29 | PN ---
Copied To: Kwan Morgan MD Attending MD: Kwan Morgan MD DATE: 02/08/2018 Would treat failure/cardiomyopathy and correct coagulopathy with vitamin K. If fluid increases, a paracentesis can be performed at that time. Kwan Morgan MD MTDD
[2018-02-08 19:56] LABS: BASO # 0.03 K/mm3 (0.0-2.0); BASO % 0.3 % (0.0-3.0); EOS # 0.2 (0.0-0.7); EOS % 1.6 % (1.5-5.0); GRAN # 4.73 (1.4-6.5); GRAN % 50.9 % (50.0-68.0); LYMPH # 3.3 (1.2-3.4); MEAN CELL VOLUME 79.7 fl (80.0-105.0); MEAN CORPUSCULAR HEMOGLOBIN 27.6 pg (25.0-35.0); MEAN CORPUSCULAR HGB CONC 34.6 g/dl (31.0-37.0); MEAN PLATELET VOLUME 9.7 fl (7.0-11.0); MONO % 11.2 % (1.0-6.0); RBC 2.9 10^6/uL (3.5-6.1); RED CELL DISTRIBUTION WIDTH 18.3 % (11.5-14.5); WHITE BLOOD COUNT 9.3 10^3/ul (4.5-11.0)
[2018-02-09 06:55] LABS: URINE BILIRUBIN NEGATIVE (NEGATIVE); URINE BLOOD TRACE-LYSED (NEGATIVE); URINE GLUCOSE (UA) NEGATIVE (NEGATIVE); URINE LEUKOCYTE ESTERASE SMALL Leu/uL (NEGATIVE); URINE PROTEIN NEGATIVE mg/dL (<30 mg/dL); URINE UROBILINOGEN 0.2 E.U./dL (<1 E.U./dL)
[2018-02-09 07:16] LABS: URINE APPEARANCE SL CLOUDY (CLEAR); URINE COLOR YELLOW (YELLOW)
[2018-02-09 07:29] LABS: BASO # 0.03 K/mm3 (0.0-2.0); BASO % 0.3 % (0.0-3.0); EOS # 0.2 (0.0-0.7); GRAN # 4.26 (1.4-6.5); GRAN % 48.6 % (50.0-68.0); HEMOGLOBIN 8.1 g/dL (12.0-16.0); LYMPH # 3.1 (1.2-3.4); LYMPH % 35.7 % (22.0-35.0); MEAN CELL VOLUME 79.7 fl (80.0-105.0); MEAN CORPUSCULAR HEMOGLOBIN 27.5 pg (25.0-35.0); MEAN CORPUSCULAR HGB CONC 34.5 g/dl (31.0-37.0); MEAN PLATELET VOLUME 10.2 fl (7.0-11.0); MONO # 1.2 (0.1-0.6); MONO % 13.4 % (1.0-6.0); RBC 2.95 10^6/uL (3.5-6.1); RED CELL DISTRIBUTION WIDTH 18.4 % (11.5-14.5); WHITE BLOOD COUNT 8.8 10^3/ul (4.5-11.0)
[2018-02-09 07:29] LABS: URINE AMORPHOUS SEDIMENT LARGE; URINE BACTERIA FEW (NEG)
--- NOTE | 2018-02-09 07:49 | CP.PCM.PN ---
Subjective - Date & Time of Evaluation Date of Evaluation: 02/09/18 Time of Evaluation: 07:00 - Subjective Subjective: Stable on 2R. She feels OK. No CP or SOB. Less LE edema. No abd. pain. V/S noted. V. Paced. PE: Lungs: clear Cor: S1S2 Abd.: soft. + ascites Ext.: less edema Neuro.: alert I/O= 1480/1100 Labs pending. Echo: Severe LVD. See report. Objective - Vital Signs/Intake and Output Vital Signs (last 24 hours): Temp Pulse Resp BP Pulse Ox 98.7 F 63 19 99/56 L 100 02/09/18 00:01 02/09/18 02:00 02/09/18 00:01 02/09/18 00:01 02/09/18 00:01 Intake and Output: 02/09/18 02/09/18 06:59 18:59 Intake Total 360 Output Total 400 Balance -40 - Medications Medications: Current Medications Albuterol/Ipratropium (Duoneb 3 Mg/0.5 Mg (3 Ml) Ud) 3 ml IH Q6H PRN PRN Reason: Shortness of Breath Carvedilol (Coreg) 3.125 mg PO BID [facility] Furosemide (Lasix) 20 mg PO DAILY [facility] Magnesium Oxide (Mag-Ox) 400 mg PO BID [facility] Last Admin: 02/08/18 18:24 Dose: 400 mg Pantoprazole Sodium (Protonix Ec Tab) 40 mg PO DAILY [facility] Last Admin: 02/08/18 09:32 Dose: 40 mg Spironolactone (Aldactone) 25 mg PO BID MIN - Labs Labs: 02/09/18 07:00 02/08/18 06:45 PT 16.5 SECONDS (9.4-12.5) H 02/08/18 06:45 INR 1.42 02/08/18 06:45 APTT 45.5 Seconds (25.1-36.5) H 02/08/18 06:45 Assessment and Plan - Assessment and Plan (Free Text) Assessment: Edema/Ascites CCM with severe LVD ICD Cirrhosis, probably etoh related. Splenic vein thrombosis CVA ETOH Smoker Plan: Await AM labs. Replace K+, Mg.++. As per GI and Int. Radiology Coreg 3.125 BID Add Lasix/Spironolactone D/C ETOH: She agrees to this. D/C tobacco. She agrees to this. OOB/PT
--- NOTE | 2018-02-09 07:56 | CARD ---
APPROVED REPORT Date of service: 02/08/2018 EXAM: Two-dimensional and M-mode echocardiogram with Doppler and color Doppler. Other Information Quality : GoodRhythm : INDICATION EDEMA/CCM 2D DIMENSIONS Left Atrium (2D)4.4 (1.6-4.0cm)IVSd0.8 (0.7-1.1cm) LVDd6.0 (3.9-5.9cm)PWd1.1 (0.7-1.1cm) LVDs5.5 (2.5-4.0cm)FS (%) 8.2 % LVEF (%)17.0 (>50%) M-Mode DIMENSIONS Aortic Root3.50 (2.2-3.7cm)Aortic Cusp Exc.1.80 (1.5-2.0cm) Aortic Valve AoV Peak Grgvanah882.0cm/s Mitral Valve MV E Mxjxmptl20.2cm/sMV A Wodopars94.3cm/sE/A ratio0.6 TDI Lateral E' Peak V4.19cm/sMedial E' Peak V3.90cm/sE/Lateral E'13.9 E/Medial E'14.9 Pulmonary Valve PV Peak Cnrykngg22.0cm/sPV Peak Grad.2mmHg Tricuspid Valve TR Peak [id number]/sRAP [id number] Peak Gr.28mmHg [id number] LEFT VENTRICLE The Left Ventricle is mildly dilated. There is normal left ventricular wall thickness. Left ventricle systolic function is severely impaired. The Ejection Fraction is 15-20%. There is severe global hypokinesis. RIGHT VENTRICLE The right ventricle is normal size. There is a pacemaker/ICD lead in the right ventricle. ATRIA The left atrium is mildly dilated. The right atrium size is normal. There is a pacemaker/ICD lead seen in the right atrium. AORTIC VALVE The aortic valve is normal in structure. MITRAL VALVE The mitral valve is normal in structure. Mitral regurgitation is mild. TRICUSPID VALVE The tricuspid valve is normal in structure. There is mild tricuspid regurgitation. GREAT VESSELS The aortic root is normal in size. PERICARDIAL EFFUSION There is no pericardial effusion. <Conclusion> The Left Ventricle is mildly dilated. There is normal left ventricular wall thickness. Left ventricle systolic function is severely impaired. The Ejection Fraction is 15-20%. There is severe global hypokinesis. Mitral regurgitation is mild. There is mild tricuspid regurgitation.
[2018-02-09 08:04] LABS: ALB/GLOB RATIO 0.5 (1.1-1.8); ALBUMIN 1.8 g/dL (3.0-4.8); ALT/SGPT 15 U/L (7-56); AST/SGOT 17 U/L (14-36); BLOOD UREA NITROGEN 10 mg/dL (7-21); CALCIUM 7.7 mg/dL (8.4-10.5); GFR AFRICAN-AMERICAN > 60; GFR NON-AFRICAN AMERICAN 56
[2018-02-09] MEDS ORDERED: Potassium Chloride 20 mEq ER Tab PO STA (09:42)
[2018-02-09] MEDS: Magnesium Oxide 400 mg Tab UD PO SCH ×2 (10:28→17:35)
[2018-02-09] MEDS: Pantoprazole 40 mg EC Tab PO SCH (10:29)
[2018-02-09] MEDS ORDERED: Magnesium 2 gm/50 ml NS 2 GM/50 ML BAG IVPB ONE (11:13)
--- NOTE | 2018-02-09 14:15 | CP.PCM.PN ---
Subjective - Date & Time of Evaluation Date of Evaluation: 02/09/18 Time of Evaluation: 09:00 - Subjective Subjective: PGY5 GI Follow-up Pt seen and examined bedside Denies any abd pain tolerating diet +BM ROS: 12 point ROS conduted, neg other than above Objective - Vital Signs/Intake and Output Vital Signs (last 24 hours): Temp Pulse Resp BP Pulse Ox 98.7 F 65 18 114/68 100 02/09/18 11:28 02/09/18 11:28 02/09/18 11:28 02/09/18 11:28 02/09/18 00:01 Intake and Output: 02/09/18 02/09/18 06:59 18:59 Intake Total 360 Output Total 400 Balance -40 - Medications Medications: Current Medications Albuterol/Ipratropium (Duoneb 3 Mg/0.5 Mg (3 Ml) Ud) 3 ml IH Q6H PRN PRN Reason: Shortness of Breath Carvedilol (Coreg) 3.125 mg PO BID [facility] Last Admin: 02/09/18 10:28 Dose: 3.125 mg Furosemide (Lasix) 20 mg PO DAILY [facility] Last Admin: 02/09/18 10:28 Dose: 20 mg Magnesium Oxide (Mag-Ox) 400 mg PO BID [facility] Last Admin: 02/09/18 10:28 Dose: 400 mg Pantoprazole Sodium (Protonix Ec Tab) 40 mg PO DAILY [facility] Last Admin: 02/09/18 10:29 Dose: 40 mg Spironolactone (Aldactone) 25 mg PO BID [facility] Last Admin: 02/09/18 10:29 Dose: 25 mg - Labs Labs: 02/09/18 07:00 02/09/18 07:00 PT 16.5 SECONDS (9.4-12.5) H 02/08/18 06:45 INR 1.42 02/08/18 06:45 APTT 45.5 Seconds (25.1-36.5) H 02/08/18 06:45 - Constitutional Appears: Well, No Acute Distress - Head Exam Head Exam: ATRAUMATIC, NORMOCEPHALIC - Eye Exam Eye Exam: Normal appearance - ENT Exam ENT Exam: Mucous Membranes Moist, Normal Exam - Neck Exam Neck Exam: Normal Inspection - Respiratory Exam Respiratory Exam: Clear to Ausculation Bilateral, NORMAL BREATHING PATTERN. absent: Rales, Rhonchi, Wheezes, Respiratory Distress - Cardiovascular Exam Cardiovascular Exam: REGULAR RHYTHM, +S1, +S2 - GI/Abdominal Exam GI & Abdominal Exam: Distended, Soft, Normal Bowel Sounds. absent: Guarding, Rigid, Tenderness, Organomegaly - Extremities Exam Extremities Exam: absent: Joint Swelling, Pedal Edema - Neurological Exam Neurological Exam: Alert, Awake, Oriented x3 - Psychiatric Exam Psychiatric exam: Normal Affect, Normal Mood - Skin Skin Exam: Dry, Intact, Normal Color, Warm Assessment and Plan - Assessment and Plan (Free Text) Assessment: Patient is a 62 F with a history of CHF EF 16% s/p defibrillator, CVA, alcohol abuse, tobacco abuse, who presents with complaints of bilateral lower extremity and abdominal swelling which began 2 weeks ago found to have ascites and cirrhosis on imaging. Ascities 2/2 decompensated cirrhosis? Decompensated cirrhosis 2/2 cardiac? vs ETOH Systolic HF w/ defib Plan: -recommend abd ascites -diuresis as per cardiology -recommend fluid eval including total protein, cell count w/ diff, albumin, grm stain -repeat INr sunday -IR will be needed for paracentesis -recommend EGD when medically optimized and cleared by cardiology will D/W Dr. coombs
--- NOTE | 2018-02-09 15:24 | CP.PCM.PN ---
<Manuel Justin - Last Filed: 02/09/18 16:10> Subjective - Date & Time of Evaluation Date of Evaluation: 02/07/18 Time of Evaluation: 18:15 - Subjective Subjective: Manuel Justin, PGY-1, Internal Medicine Progress Note for Dr. Douglas Patient seen and examined this morning. No acute overnight events. Patient reports abdominal distention and bilateral thigh swelling. Patient denies chest pain, shortness of breath, dizziness, fever, nausea, vomiting, diarrhea, or blood in the stool. Objective - Vital Signs/Intake and Output Vital Signs (last 24 hours): Temp Pulse Resp BP Pulse Ox 98.7 F 65 18 114/68 100 02/09/18 11:28 02/09/18 11:28 02/09/18 11:28 02/09/18 11:28 02/09/18 00:01 Intake and Output: 02/09/18 02/09/18 06:59 18:59 Intake Total 360 Output Total 400 Balance -40 - Medications Medications: Current Medications Albuterol/Ipratropium (Duoneb 3 Mg/0.5 Mg (3 Ml) Ud) 3 ml IH Q6H PRN PRN Reason: Shortness of Breath Carvedilol (Coreg) 3.125 mg PO BID [facility] Last Admin: 02/09/18 10:28 Dose: 3.125 mg Furosemide (Lasix) 20 mg PO DAILY [facility] Last Admin: 02/09/18 10:28 Dose: 20 mg Magnesium Oxide (Mag-Ox) 400 mg PO BID [facility] Last Admin: 02/09/18 10:28 Dose: 400 mg Pantoprazole Sodium (Protonix Ec Tab) 40 mg PO DAILY [facility] Last Admin: 02/09/18 10:29 Dose: 40 mg Spironolactone (Aldactone) 25 mg PO BID [facility] Last Admin: 02/09/18 10:29 Dose: 25 mg - Labs Labs: 02/09/18 07:00 02/09/18 07:00 PT 16.5 SECONDS (9.4-12.5) H 02/08/18 06:45 INR 1.42 02/08/18 06:45 APTT 45.5 Seconds (25.1-36.5) H 02/08/18 06:45 - Constitutional Appears: Well, Non-toxic - Head Exam Head Exam: ATRAUMATIC, NORMOCEPHALIC - Eye Exam Eye Exam: EOMI, PERRL - Respiratory Exam Respiratory Exam: Clear to Ausculation Bilateral, NORMAL BREATHING PATTERN - Cardiovascular Exam Cardiovascular Exam: REGULAR RHYTHM - GI/Abdominal Exam GI & Abdominal Exam: Distended, Firm, Normal Bowel Sounds - Extremities Exam Extremities Exam: Full ROM - Neurological Exam Neurological Exam: Alert, Awake, CN II-XII Intact, Oriented x3 Neuro motor strength exam: Left Upper Extremity: 5, Right Upper Extremity: 5, Left Lower Extremity: 5, Right Lower Extremity: 5 - Psychiatric Exam Psychiatric exam: Normal Affect, Normal Mood Assessment and Plan - Assessment and Plan (Free Text) Assessment: 62 year old female with past medical history of asthma, cardiomyopathy s/p pacemaker, and stroke presents with leg swelling and abdominal distention. Plan: Microcytic Anemia -1 unit of PRBC given on 02/08 -Patient's Hgb has increased in 8.1. Baseline is 8-9 from 2013. -Continue to monitor. -FOBT results pending. -PT: 16.5, INR: 1.42, PTT: 45.5 Ascites likely 2/2 alcohol abuse -CT abdomen and pelvis: cirrhotic liver decreased in size as compared to previous with more irregular contour. Thrombosis of splenic vein. Calcifications and atrophic pancreas. Large volume intra-abdominal and pelvic ascites in peritoneum. Diffuse anasarca -CXR: no active disease -Lipase<10 due to atrophic pancreas -Total protein: 5.6, Albumin: 1.8 -UDS: negative. Alcohol: <10 -CIWA: 0. Patient has had a CIWA of 0 this entire hospital stay. -Lasix 20 mg daily for diuresis. -I and Os: Intake: 1480, Output: 1100, Balance: 380 -Daily Weights: up to 115 from 94. -GI, Dr. Varela consulted for recommendations. Follow recommendations. -As per GI, peritoneal fluid albumin, cell count, total protein, gram stain ordered for etiology of ascites. INR to be repeated Sunday. Today INR was -As per GI, stool culture, O and P, C. Diff toxin, fecal leukocytes have been ordered to evaluate for reason for history of diarrhea. -Plan for paracentesis if fluid increases. EGD recommended once cleared by cardiology. -Per interventional radiology, correct coagulopathy with vitamin K. Systolic Left Sided Congestive Heart Failure -Echocardiogram 02/08/18: 15-20%. Severe Global hypokinesis. Mild mitral regurgitation. Mild tricuspid regurgitation. Normal left ventricular thickness. -Last echo in 10/17: EF=18% -Troponin negative -aspirin 81 -coreg held due to hypotension -lasix 20 mg daily -spironolactone 25 mg BID -BNP: 3780 -Cardiology, Dr. Don consulted. Follow recommendations. Hypotension 2/2 Cardiomyopathy-resolved -BP: 114/68 -Coreg continued being held -Continue lasix as per cardiology. Diarrhea 2/2 atrophic pancreas -likely 2/2 to atrophic pancreas -follow up C Diff toxin, O and P, fecal leukocytes, and stool culture -Communicated to nurses to count and quantify stools. Hypomagnesia-resolved -M.7 from 1.5 -Continue Magnesium Oxide 400 mg BID Hypokalemia-resolved -K: 3.8 from 3.2 -Given 40 meq potassium chloride 02/09 and 02/08. Rule out DVT -Duplex ultrasound (02/07): no DVTs Asthma -duonebs PRN Disposition -Patient for possible paracentesis by IR. -Continue to follow daily weights, Is and Os -Check PT/INR tomorrow. -Patient should follow up with GI outpatient for atrophic pancreas and ascites. -Patient should follow up with PCP on discharge. -Alcohol and smoking cessation counseling given. GI ppx: protonix 40 DVT ppx: SCD Patient seen and examined with Dr. Douglas. <Gee Douglas - Last Filed: 02/10/18 13:08> Objective - Vital Signs/Intake and Output Vital Signs (last 24 hours): Temp Pulse Resp BP Pulse Ox 98.1 F 55 L 18 117/69 100 02/10/18 12:00 02/10/18 12:00 02/10/18 12:00 02/10/18 12:00 02/10/18 06:00 Intake and Output: 02/10/18 02/10/18 06:59 18:59 Intake Total 360 Balance 360 - Medications Medications: Current Medications Albuterol/Ipratropium (Duoneb 3 Mg/0.5 Mg (3 Ml) Ud) 3 ml IH Q6H PRN PRN Reason: Shortness of Breath Aspirin (Ecotrin) 81 mg PO DAILY [facility] Last Admin: 02/10/18 09:53 Dose: 81 mg Carvedilol (Coreg) 6.25 mg PO BID [facility] Last Admin: 02/10/18 09:57 Dose: 6.25 mg Furosemide (Lasix) 20 mg PO DAILY [facility] Last Admin: 02/10/18 09:53 Dose: 20 mg Magnesium Oxide (Mag-Ox) 400 mg PO BID [facility] Last Admin: 02/10/18 09:53 Dose: 400 mg Pantoprazole Sodium (Protonix Ec Tab) 40 mg PO DAILY [facility] Last Admin: 02/10/18 09:53 Dose: 40 mg Spironolactone (Aldactone) 25 mg PO BID [facility] Last Admin: 02/10/18 09:53 Dose: 25 mg - Labs Labs: 02/10/18 06:30 02/10/18 06:30 PT 15.3 SECONDS (9.4-12.5) H 02/10/18 06:30 INR 1.32 02/10/18 06:30 APTT 42.6 Seconds (25.1-36.5) H 02/10/18 06:30 Attending/Attestation - Attestation I have personally seen and examined this patient.: Yes I have fully participated in the care of the patient.: Yes I have reviewed all pertinent clinical information, including history, physical exam and plan: Yes Notes (Text): 02/10/18 13:07 Attending note ; Patient seen and examined with resident. Denies any chest pain, shortness of breath.' Leg swelling is improving. Urine output is increasing. Patient is a 62 year old female with the PMHx of asthma, anemia, ascites, active smoking , alcohol abuse , dilated cardiomyopathy s/p pacemaker placement in [facility] in 2004, EF of 16% and CVA 13 years ago who presented with complaints of bilateral leg swelling. Acute on chronic systolic CHF exacerbation. Started on Lasix. Leg swelling is improving. DVT is negative. Dietary education given. Cardiology evaluation with Dr. Don appreciated. Blood pressure is stable. Started on Coreg and Lasix. Severe anemia; status post 1 unit PRBC transfusion . Hemoglobin is stable at 8.8. No active bleeding. Stool guaiac is negative. GI evaluation appreciated. Cirrhosis; secondary to chronic alcohol abuse. Complete alcohol cessation is strongly advised. We will monitor closely. Possible paracentesis if ascites is increasing. Currently patient is clinically stable. Active smoking; smoking cessation is strongly advised. Upon discharge the patient will follow-up with PMD Dr. Haro.
[2018-02-09] MEDS ORDERED: Phytonadione 10 MG in Sodium Chloride 0.9% 50 ML IV ONE (16:05)
[2018-02-10 08:02] LABS: BASO # 0.03 K/mm3 (0.0-2.0); BASO % 0.3 % (0.0-3.0); EOS # 0.2 (0.0-0.7); GRAN # 4.33 (1.4-6.5); GRAN % 46.7 % (50.0-68.0); HEMOGLOBIN 8.8 g/dL (12.0-16.0); LYMPH # 3.8 (1.2-3.4); LYMPH % 40.6 % (22.0-35.0); MEAN CELL VOLUME 80.6 fl (80.0-105.0); MEAN CORPUSCULAR HEMOGLOBIN 27.2 pg (25.0-35.0); MEAN CORPUSCULAR HGB CONC 33.7 g/dl (31.0-37.0); MEAN PLATELET VOLUME 10.6 fl (7.0-11.0); MONO % 10.4 % (1.0-6.0); RBC 3.24 10^6/uL (3.5-6.1); RED CELL DISTRIBUTION WIDTH 18.5 % (11.5-14.5); WHITE BLOOD COUNT 9.3 10^3/ul (4.5-11.0)
[2018-02-10 08:06] LABS: BLOOD UREA NITROGEN 10 mg/dL (7-21); CALCIUM 8.1 mg/dL (8.4-10.5); GFR AFRICAN-AMERICAN > 60; GFR NON-AFRICAN AMERICAN 56
--- NOTE | 2018-02-10 08:06 | CP.PCM.PN ---
Subjective - Date & Time of Evaluation Date of Evaluation: 02/10/18 Time of Evaluation: 07:00 - Subjective Subjective: Stable on 2R. She feels OK. No CP or SOB. Less LE edema. No abd. pain. + ambulation. She agrees to abstinence from ETOH and tobacco from now on. V/S noted. V. Paced. PE: Lungs: clear Cor: S1S2 Abd.: soft. + ascites Ext.: less edema Neuro.: alert Labs 02/09 noted. Todays labs pending. Echo: Severe LVD. See report. Objective - Vital Signs/Intake and Output Vital Signs (last 24 hours): Temp Pulse Resp BP Pulse Ox 98.7 F 62 19 109/67 100 02/10/18 06:00 02/10/18 06:00 02/10/18 06:00 02/10/18 06:00 02/10/18 06:00 Intake and Output: 02/10/18 02/10/18 06:59 18:59 Intake Total 360 Balance 360 - Medications Medications: Current Medications Albuterol/Ipratropium (Duoneb 3 Mg/0.5 Mg (3 Ml) Ud) 3 ml IH Q6H PRN PRN Reason: Shortness of Breath Aspirin (Ecotrin) 81 mg PO DAILY [facility] Carvedilol (Coreg) 3.125 mg PO BID [facility] Last Admin: 02/09/18 17:36 Dose: 3.125 mg Furosemide (Lasix) 20 mg PO DAILY [facility] Last Admin: 02/09/18 10:28 Dose: 20 mg Magnesium Oxide (Mag-Ox) 400 mg PO BID [facility] Last Admin: 02/09/18 17:35 Dose: 400 mg Pantoprazole Sodium (Protonix Ec Tab) 40 mg PO DAILY [facility] Last Admin: 02/09/18 10:29 Dose: 40 mg Spironolactone (Aldactone) 25 mg PO BID [facility] Last Admin: 02/09/18 17:35 Dose: 25 mg - Labs Labs: 02/09/18 07:00 02/09/18 07:00 PT 16.5 SECONDS (9.4-12.5) H 02/08/18 06:45 INR 1.42 02/08/18 06:45 APTT 45.5 Seconds (25.1-36.5) H 02/08/18 06:45 Assessment and Plan - Assessment and Plan (Free Text) Assessment: Edema/Ascites CCM with severe LVD ICD Cirrhosis, probably etoh and/or cardiac related. Splenic vein thrombosis CVA ETOH Smoker Mild MR and TR on echo Plan: Await AM labs. Replace K+, Mg.++. As per GI and Int. Radiology. Tap ascites Sunday planned. Increase Coreg 6.25 BID. Titrate. Continue Lasix/Spironolactone D/C ETOH: She agrees to this. D/C tobacco. She agrees to this. OOB/PT
[2018-02-10 08:07] LABS: INR 1.32; PROTHROMBIN TIME 15.3 SECONDS (9.4-12.5)
[2018-02-10] MEDS: Pantoprazole 40 mg EC Tab PO SCH (09:53)
[2018-02-10] MEDS: Magnesium Oxide 400 mg Tab UD PO SCH ×2 (09:53→17:45)
--- NOTE | 2018-02-10 10:41 | CP.PCM.PN ---
<Manuel Justin - Last Filed: 02/10/18 10:29> Subjective - Date & Time of Evaluation Date of Evaluation: 02/10/18 Time of Evaluation: 10:29 - Subjective Subjective: Manuel Justin, PGY-1, Internal Note Progress Note for Dr. Douglas Patient seen and examined this morning. No acute overnight events. Patient reports improved abdominal distention and bilateral leg swelling. Patient denies chest pain, shortness of breath, dizziness, fever, nausea, vomiting, diarrhea, or blood in the stool. Objective - Vital Signs/Intake and Output Vital Signs (last 24 hours): Temp Pulse Resp BP Pulse Ox 98.7 F 60 19 109/65 100 02/10/18 06:00 02/10/18 09:57 02/10/18 06:00 02/10/18 09:57 02/10/18 06:00 Intake and Output: 02/10/18 02/10/18 06:59 18:59 Intake Total 360 Balance 360 - Medications Medications: Current Medications Albuterol/Ipratropium (Duoneb 3 Mg/0.5 Mg (3 Ml) Ud) 3 ml IH Q6H PRN PRN Reason: Shortness of Breath Aspirin (Ecotrin) 81 mg PO DAILY [facility] Last Admin: 02/10/18 09:53 Dose: 81 mg Carvedilol (Coreg) 6.25 mg PO BID [facility] Last Admin: 02/10/18 09:57 Dose: 6.25 mg Furosemide (Lasix) 20 mg PO DAILY [facility] Last Admin: 02/10/18 09:53 Dose: 20 mg Magnesium Oxide (Mag-Ox) 400 mg PO BID [facility] Last Admin: 02/10/18 09:53 Dose: 400 mg Pantoprazole Sodium (Protonix Ec Tab) 40 mg PO DAILY [facility] Last Admin: 02/10/18 09:53 Dose: 40 mg Spironolactone (Aldactone) 25 mg PO BID [facility] Last Admin: 02/10/18 09:53 Dose: 25 mg - Labs Labs: 02/10/18 06:30 02/10/18 06:30 PT 15.3 SECONDS (9.4-12.5) H 02/10/18 06:30 INR 1.32 02/10/18 06:30 APTT 42.6 Seconds (25.1-36.5) H 02/10/18 06:30 - Constitutional Appears: Well, Non-toxic - Head Exam Head Exam: ATRAUMATIC, NORMOCEPHALIC - Eye Exam Eye Exam: EOMI, PERRL - Respiratory Exam Respiratory Exam: Clear to Ausculation Bilateral, NORMAL BREATHING PATTERN - Cardiovascular Exam Cardiovascular Exam: REGULAR RHYTHM, RRR - GI/Abdominal Exam GI & Abdominal Exam: Distended (improved), Firm, Normal Bowel Sounds - Extremities Exam Extremities Exam: Pedal Edema Additional comments: improved bilateral lower extremity edema - Neurological Exam Neurological Exam: Alert, Awake, CN II-XII Intact, Oriented x3 Neuro motor strength exam: Left Upper Extremity: 5, Right Upper Extremity: 5, Left Lower Extremity: 5, Right Lower Extremity: 5 - Psychiatric Exam Psychiatric exam: Normal Affect, Normal Mood - Skin Skin Exam: Dry, Intact, Normal Color Assessment and Plan - Assessment and Plan (Free Text) Assessment: 62 year old female with past medical history of asthma, cardiomyopathy s/p pacemaker, and stroke presents with leg swelling and abdominal distention. Plan: Ascites likely 2/2 alcohol abuse -CT abdomen and pelvis: cirrhotic liver decreased in size as compared to previous with more irregular contour. Thrombosis of splenic vein. Calcifications and atrophic pancreas. Large volume intra-abdominal and pelvic ascites in peritoneum. Diffuse anasarca -CXR: no active disease -Lipase<10 due to atrophic pancreas -02/09: Total protein: 5.6, Albumin: 1.8 -UDS: negative. Alcohol: <10 -CIWA: 0. Patient has had a CIWA of 0 this entire hospital stay. -Lasix 20 mg daily for diuresis. -I and Os: Intake: 1560 -Daily Weights: stable at 115 from 115. -02/08: PT: 16.5, INR: 1.42, PTT: 45.5 -02/10: PT: 15.3, INR: 1.32 PTT: 42.6 -GI, Dr. Varela consulted for recommendations. Follow recommendations. -As per GI, peritoneal fluid albumin, cell count, total protein, gram stain ordered for etiology of ascites. -As per GI, stool culture, O and P, C. Diff toxin, fecal leukocytes have been ordered to evaluate for reason for history of diarrhea. -Plan for paracentesis if fluid increases. EGD recommended once cleared by cardiology. -Per interventional radiology, correct coagulopathy with vitamin K. One dose of IV vitamin K given yesterday. Another dose of Vitamin K to be given tomorrow. Microcytic Anemia -1 unit of PRBC given on 02/08 -Patient's Hgb 8.8 02/10 from 8.1 on 02/09. Baseline is 8-9 from 2013. -Continue to monitor. -FOBT results pending. Systolic Left Sided Congestive Heart Failure -Echocardiogram 02/08/18: 15-20%. Severe Global hypokinesis. Mild mitral regurgitation. Mild tricuspid regurgitation. Normal left ventricular thickness. -Last echo in 10/17: EF=18% -Troponin negative -aspirin 81 -coreg 6.[address] Don -lasix 20 mg daily -spironolactone 25 mg BID -BNP: 3780 -Cardiology, Dr. Don consulted. Follow recommendations. Hypotension 2/2 Cardiomyopathy-resolved -BP: 109/65 -coreg 6.[address] Don due to resolved hypotension. -Continue lasix as per cardiology. Diarrhea 2/2 atrophic pancreas -likely 2/2 to atrophic pancreas -follow up C Diff toxin, O and P, fecal leukocytes, and stool culture -Communicated to nurses to count and quantify stools. Hypomagnesia-resolved -M.7 02/09 from 1.5 02/08 -Continue Magnesium Oxide 400 mg BID Hypokalemia-resolved -K: 4.7 from 3.8 -Given 40 meq potassium chloride 02/09 and 02/08. Hypocalcemia -Ca: 8.1 from 7.7 -Continue to monitor. Rule out DVT -Duplex ultrasound (02/07): no DVTs Asthma -duonebs PRN Disposition -Patient for possible paracentesis by IR. -Continue to follow daily weights, Is and Os -Check PT/INR tomorrow. -Patient should follow up with GI outpatient for atrophic pancreas and ascites. -Patient should follow up with PCP on discharge. -Alcohol and smoking cessation counseling given. GI ppx: protonix 40 DVT ppx: SCD Patient seen and examined with Dr. Douglas. <Gee Douglas - Last Filed: 02/10/18 18:46> Objective - Vital Signs/Intake and Output Vital Signs (last 24 hours): Temp Pulse Resp BP Pulse Ox 98.1 F 59 L 18 109/66 100 02/10/18 12:00 02/10/18 17:45 02/10/18 12:00 02/10/18 17:45 02/10/18 06:00 Intake and Output: 02/10/18 02/10/18 06:59 18:59 Intake Total 360 Balance 360 - Medications Medications: Current Medications Albuterol/Ipratropium (Duoneb 3 Mg/0.5 Mg (3 Ml) Ud) 3 ml IH Q6H PRN PRN Reason: Shortness of Breath Aspirin (Ecotrin) 81 mg PO DAILY [facility] Last Admin: 02/10/18 09:53 Dose: 81 mg Carvedilol (Coreg) 6.25 mg PO BID [facility] Last Admin: 02/10/18 17:45 Dose: 6.25 mg Furosemide (Lasix) 20 mg PO DAILY [facility] Last Admin: 02/10/18 09:53 Dose: 20 mg Magnesium Oxide (Mag-Ox) 400 mg PO BID [facility] Last Admin: 02/10/18 17:45 Dose: 400 mg Pantoprazole Sodium (Protonix Ec Tab) 40 mg PO DAILY [facility] Last Admin: 02/10/18 09:53 Dose: 40 mg Spironolactone (Aldactone) 25 mg PO BID [facility] Last Admin: 02/10/18 17:45 Dose: 25 mg - Labs Labs: 02/10/18 06:30 02/10/18 06:30 PT 15.3 SECONDS (9.4-12.5) H 02/10/18 06:30 INR 1.32 02/10/18 06:30 APTT 42.6 Seconds (25.1-36.5) H 02/10/18 06:30 Attending/Attestation - Attestation I have personally seen and examined this patient.: Yes I have fully participated in the care of the patient.: Yes I have reviewed all pertinent clinical information, including history, physical exam and plan: Yes Notes (Text): 02/10/18 18:45 Attending note ; Patient seen and examined with resident. Denies any chest pain, shortness of breath. Leg swelling is improving. Patient is a 62 year old female with the PMHx of asthma, anemia, ascites, active smoking , alcohol abuse , dilated cardiomyopathy s/p pacemaker placement in [facility] in 2004, EF of 16% and CVA 13 years ago who presented with complaints of bilateral leg swelling. Acute on chronic systolic CHF exacerbation. Started on Lasix. Leg swelling is improving. DVT is negative. Dietary education given. Cardiology evaluation with Dr. Don appreciated. Blood pressure is stable. Started on Coreg,Aldactone and Lasix. Severe anemia; status post 1 unit PRBC transfusion . Hemoglobin is stable at 8.8. No active bleeding. Stool guaiac is negative. GI evaluation appreciated. Cirrhosis; secondary to chronic alcohol abuse. Complete alcohol cessation is strongly advised. We will monitor closely. Possible paracentesis if ascites is increasing. Currently patient is clinically stable. Active smoking; smoking cessation is strongly advised. physical therapy evaluation requested. Upon discharge the patient will follow-up with PMD Dr. Haro. 02/10/18 18:46
--- NOTE | 2018-02-10 12:26 | PN ---
Copied To: Lico Clifford MD Attending MD: Lico Clifford MD DATE: 02/10/2018 SUBJECTIVE: The patient is walking around on the floor. She denies any abdominal pain, nausea, vomiting, rectal bleeding or melena. PHYSICAL EXAMINATION: VITAL SIGNS: Reveal temperature of 98.7, blood pressure 109/65, heart rate of 60. HEENT: Reveal sclerae to be white. Conjunctivae pale. NECK: Supple. CHEST: Reveal lungs to be clear. HEART: Reveals a regular rate and rhythm. ABDOMEN: Soft, nontender. No mass. EXTREMITIES: Show no edema. LABORATORY DATA: Reveal hemoglobin of 8.8, platelet count of 229,000, white blood cell count 9.3. Chemistries reveal chloride 108, BUN 10, creatinine 1. Serum albumin on 02/09/2018 was 1.8. IMPRESSION: A 62-year-old female with alcohol-induced cirrhosis of the liver, chronic pancreatitis, splenic vein thrombus admitted to the hospital with profound anemia without any evidence of active gastrointestinal bleeding. The patient does have a history of severe cardiomyopathy with an ejection fraction of only 16%, status post permanent pacemaker. She is at high risk for any endoscopic procedures. RECOMMENDATIONS: 1. We will need cardiac clearance with upper endoscopy to follow. 2. Interventional Radiology consultation for large-volume paracentesis. Lico Clifford MD : 02/10/2018 11:16:22
[2018-02-11 06:33] LABS: BASO # 0.03 K/mm3 (0.0-2.0); BASO % 0.4 % (0.0-3.0); EOS # 0.2 (0.0-0.7); EOS % 2.2 % (1.5-5.0); GRAN # 4.07 (1.4-6.5); HEMOGLOBIN 7.8 g/dL (12.0-16.0); LYMPH # 3.2 (1.2-3.4); LYMPH % 37.2 % (22.0-35.0); MEAN CELL VOLUME 80.8 fl (80.0-105.0); MEAN CORPUSCULAR HEMOGLOBIN 27.3 pg (25.0-35.0); MEAN CORPUSCULAR HGB CONC 33.8 g/dl (31.0-37.0); MEAN PLATELET VOLUME 11.1 fl (7.0-11.0); MONO % 12.2 % (1.0-6.0); RBC 2.86 10^6/uL (3.5-6.1); RED CELL DISTRIBUTION WIDTH 19.2 % (11.5-14.5); WHITE BLOOD COUNT 8.5 10^3/ul (4.5-11.0)
--- NOTE | 2018-02-11 07:35 | CP.PCM.PN ---
Subjective - Date & Time of Evaluation Date of Evaluation: 02/11/18 Time of Evaluation: 07:00 - Subjective Subjective: Stable on 2R. She feels OK. No CP or SOB. No abd. pain. + ambulation. She agrees to abstinence from ETOH and tobacco from now on. V/S noted. V. Paced. PE: Lungs: clear Cor: S1S2 Abd.: soft. + ascites Ext.: less edema Neuro.: alert Labs noted: H/H 7.8/23.1, Mg.++= 1.7 Echo: Severe LVD. See report. Objective - Vital Signs/Intake and Output Vital Signs (last 24 hours): Temp Pulse Resp BP Pulse Ox 98.8 F 68 20 106/69 98 02/11/18 05:56 02/11/18 05:56 02/11/18 05:56 02/11/18 05:56 02/11/18 05:56 Intake and Output: 02/11/18 02/11/18 06:59 18:59 Intake Total 120 Balance 120 - Medications Medications: Current Medications Albuterol/Ipratropium (Duoneb 3 Mg/0.5 Mg (3 Ml) Ud) 3 ml IH Q6H PRN PRN Reason: Shortness of Breath Aspirin (Ecotrin) 81 mg PO DAILY [facility] Last Admin: 02/10/18 09:53 Dose: 81 mg Carvedilol (Coreg) 6.25 mg PO BID [facility] Last Admin: 02/10/18 17:45 Dose: 6.25 mg Furosemide (Lasix) 20 mg PO DAILY [facility] Last Admin: 02/10/18 09:53 Dose: 20 mg Magnesium Oxide (Mag-Ox) 400 mg PO BID [facility] Last Admin: 02/10/18 17:45 Dose: 400 mg Pantoprazole Sodium (Protonix Ec Tab) 40 mg PO DAILY [facility] Last Admin: 02/10/18 09:53 Dose: 40 mg Spironolactone (Aldactone) 25 mg PO BID [facility] Last Admin: 02/10/18 17:45 Dose: 25 mg - Labs Labs: 02/11/18 05:30 02/10/18 06:30 PT 15.3 SECONDS (9.4-12.5) H 02/10/18 06:30 INR 1.32 02/10/18 06:30 APTT 42.6 Seconds (25.1-36.5) H 02/10/18 06:30 Assessment and Plan - Assessment and Plan (Free Text) Assessment: Edema/Ascites CCM with severe LVD ICD Cirrhosis, probably etoh and/or cardiac related. Splenic vein thrombosis CVA ETOH Smoker Mild MR and TR on echo Plan: For paracentesis today. High cardiac risk for EGD. As per GI, medical team and Int. Radiology. Continue Coreg 6.25 BID. Titrate as jim. Continue Lasix/Spironolactone D/C ETOH: She agrees to this. D/C tobacco. She agrees to this. OOB/PT
--- NOTE | 2018-02-11 08:53 | CP.PCM.PN ---
<Haley Gomez - Last Filed: 02/11/18 15:20> Subjective - Date & Time of Evaluation Date of Evaluation: 02/11/18 Time of Evaluation: 08:55 - Subjective Subjective: Haley Gomez PGY1 Progress Note for Dr. Pate Ms. Nowak was examined at bedside this morning. She did not have any complaints or acute events overnight. She reported improvement of her leg and abdominal swelling. She denied any episodes of diarrhea. She denied any dizziness, shortness of breath, chest pain, abdominal pain, nausea, vomiting, or dysuria. Objective - Vital Signs/Intake and Output Vital Signs (last 24 hours): Temp Pulse Resp BP Pulse Ox 98.8 F 68 20 106/69 98 02/11/18 05:56 02/11/18 05:56 02/11/18 05:56 02/11/18 05:56 02/11/18 05:56 Intake and Output: 02/11/18 02/11/18 06:59 18:59 Intake Total 120 Balance 120 - Medications Medications: Current Medications Albuterol/Ipratropium (Duoneb 3 Mg/0.5 Mg (3 Ml) Ud) 3 ml IH Q6H PRN PRN Reason: Shortness of Breath Aspirin (Ecotrin) 81 mg PO DAILY [facility] Last Admin: 02/10/18 09:53 Dose: 81 mg Carvedilol (Coreg) 6.25 mg PO BID [facility] Last Admin: 02/10/18 17:45 Dose: 6.25 mg Furosemide (Lasix) 20 mg PO DAILY [facility] Last Admin: 02/10/18 09:53 Dose: 20 mg Magnesium Oxide (Mag-Ox) 400 mg PO BID [facility] Last Admin: 02/10/18 17:45 Dose: 400 mg Pantoprazole Sodium (Protonix Ec Tab) 40 mg PO DAILY [facility] Last Admin: 02/10/18 09:53 Dose: 40 mg Spironolactone (Aldactone) 25 mg PO BID [facility] Last Admin: 02/10/18 17:45 Dose: 25 mg - Labs Labs: 02/11/18 05:30 02/10/18 06:30 PT 15.3 SECONDS (9.4-12.5) H 02/10/18 06:30 INR 1.32 02/10/18 06:30 APTT 42.6 Seconds (25.1-36.5) H 02/10/18 06:30 - Constitutional Appears: Well, No Acute Distress - Head Exam Head Exam: ATRAUMATIC, NORMOCEPHALIC - Eye Exam Eye Exam: Normal appearance Pupil Exam: NORMAL ACCOMODATION - ENT Exam ENT Exam: Mucous Membranes Moist - Respiratory Exam Respiratory Exam: Clear to Ausculation Bilateral, NORMAL BREATHING PATTERN. absent: Rales, Rhonchi, Wheezes - Cardiovascular Exam Cardiovascular Exam: REGULAR RHYTHM, +S1, +S2 - GI/Abdominal Exam GI & Abdominal Exam: Distended, Soft, Normal Bowel Sounds. absent: Firm, Tenderness Additional comments: distention improved from yesterday - Extremities Exam Extremities Exam: Normal Inspection, Pedal Edema Additional comments: b/l pitting edema - Neurological Exam Neurological Exam: Alert, Awake, Oriented x3 - Psychiatric Exam Psychiatric exam: Normal Affect, Normal Mood - Skin Skin Exam: Normal Color Assessment and Plan - Assessment and Plan (Free Text) Assessment: 62 year old female with past medical history of asthma, cardiomyopathy s/p pacemaker, and stroke presents with leg swelling and abdominal distention. Plan: Ascites likely 2/2 alcohol abuse - CT abdomen and pelvis: cirrhotic liver decreased in size as compared to previous with more irregular contour. Thrombosis of splenic vein. Calcifications and atrophic pancreas. Large volume intra-abdominal and pelvic ascites in peritoneum. Diffuse anasarca - CXR: no active disease - Lipase<10 due to atrophic pancreas - 02/09: Total protein: 5.6, Albumin: 1.8 - UDS: negative. Alcohol: <10 - CIWA: 0. Patient has had a CIWA of 0 this entire hospital stay. - Lasix 20 mg daily for diuresis. - I and Os: 120 mls input - Daily Weights: stable at 115 from 115. - 02/11: PT: 16.3, INR: 1.41 - pending paracentesis by IR - peritoneal fluid albumin, cell count, total protein, gram stain ordered for etiology of ascites as per GI - GI consulted- Dr. Varela, recommend EGD pending cardio clearance - Cardio consulted- Dr. Don, pt high cardio risk for EGD - stool culture, fecal leukocytes ordered for h/o diarrhea, as per GI - stool ova and parasites negative C. Diff Ag Positive - 02/11: C. diff antigen positive, toxin negative - pt denies any diarrhea - ID consulted - start vanco 250 PO q6h - contact precautions Microcytic Anemia - 1 unit of PRBC given on 02/08 - Hgb 7.8 02/11 from 8.1 on 02/09. Baseline is 8- from 2013. - PM labs ordered, follow up - Continue to monitor. - FOBT results pending. Systolic Left Sided Congestive Heart Failure - Echo 02/08/18: EF 15-20%. Severe Global hypokinesis. Mild mitral regurgitation. Mild tricuspid regurgitation. Normal left ventricular thickness. - Last echo in 10/17: EF=18% - Troponin negative - aspirin 81 - start coreg 6.[address] Don - lasix 20 mg daily - spironolactone 25 mg BID - BNP: 3780 - Cardiology consulted, Dr. Don - recs appreciated Splenic Vein Thrombosis - CT abdomen pelvis: thrombosis of splenic vein - No anticoagulation at this time, as per cardio - continue to monitor Hypotension 2/2 Cardiomyopathy-resolved - BP: 106/69 - start coreg 6.[address] Don due to resolved hypotension. - Continue lasix as per cardiology. Diarrhea 2/2 atrophic pancreas - likely etiology: atrophic pancreas - follow up C Diff toxin, O and P, fecal leukocytes, and stool culture - Communicated to nurses to count and quantify stools. Hypomagnesia-resolved - M.7 02/11 from 1.5 02/08 - Continue Magnesium Oxide 400 mg BID Hypocalcemia - Ca: 8.1, corrected 11.3 from 7.7 - Continue to monitor Rule out DVT - Duplex ultrasound (02/07): no DVTs Asthma - duonebs PRN GI ppx: protonix 40 DVT ppx: SCD Patient seen and examined with Dr. Pate. <Dasha Pate - Last Filed: 02/11/18 21:43> Objective - Vital Signs/Intake and Output Vital Signs (last 24 hours): Temp Pulse Resp BP Pulse Ox 98.8 F 70 18 100/62 98 02/11/18 18:00 02/11/18 18:00 02/11/18 18:00 02/11/18 18:00 02/11/18 05:56 Intake and Output: 02/11/18 02/12/18 18:59 06:59 Intake Total 900 Balance 900 - Medications Medications: Current Medications Albuterol/Ipratropium (Duoneb 3 Mg/0.5 Mg (3 Ml) Ud) 3 ml IH Q6H PRN PRN Reason: Shortness of Breath Aspirin (Ecotrin) 81 mg PO DAILY [facility] Last Admin: 02/11/18 11:06 Dose: 81 mg Carvedilol (Coreg) 6.25 mg PO BID [facility] Last Admin: 02/11/18 17:50 Dose: 6.25 mg Furosemide (Lasix) 20 mg PO DAILY [facility] Last Admin: 02/11/18 11:06 Dose: 20 mg Magnesium Oxide (Mag-Ox) 400 mg PO BID [facility] Last Admin: 02/11/18 17:50 Dose: 400 mg Spironolactone (Aldactone) 25 mg PO BID [facility] Last Admin: 02/11/18 17:50 Dose: 25 mg Vancomycin HCl (Vancocin 25 Mg/Ml (Oral Use)) 250 mg PO QID [facility] PRN Reason: Protocol Last Admin: 02/11/18 17:49 Dose: 250 mg - Labs Labs: 02/11/18 16:57 02/10/18 06:30 PT 16.3 SECONDS (9.4-12.5) H 02/11/18 10:30 INR 1.41 02/11/18 10:30 APTT 42.6 Seconds (25.1-36.5) H 02/10/18 06:30 Attending/Attestation - Attestation I have personally seen and examined this patient.: Yes I have fully participated in the care of the patient.: Yes I have reviewed all pertinent clinical information, including history, physical exam and plan: Yes Notes (Text): Patient seen and examined by me at 10:20AM with resident. Patient is new to me. Case discussed with Dr. Horne. Case including HPI, physical exam, and assessment and plan discussed with resident. Agree with above with following additions/corrections. Patient is a 62-year-old female with past medical history significant for asthma , anemia, alcohol abuse, ascites, cardiomyopathy status post ICD placement, and CVA that presented to the emergency room with bilateral leg swelling for one and half weeks. Patient states that she is feeling better today. She states that her abdomen feels full. She is denying any abdominal pain. No nausea or vomiting. Patient states that she is not to drink alcohol anymore. No headaches or dizziness. No change in vision. No lightheadedness. No fevers or chills. No chest pain or shortness of breath. No dysuria. No diarrhea or constipation. Patient states that she is having formed stools. Physical exam: Gen: Awake and alert sitting up in bed in no acute distress HEENT: Normocephalic, atraumatic. Extraocular muscles intact, pupils equal reactive. No scleral icterus. Oropharynx is pink and moist, no pharyngeal erythema or exudate appreciated. Poor dentition. Neck is supple. Cardiovascular: Normal rhythm. Normal S1, S2. No murmurs, rubs, or gallops appreciated Pulmonary: Normal respiratory effort. Decreased breath sounds. No rhonchi, rales or wheezing appreciated. Gastrointestinal: Soft, nontender, distended, positive bowel sounds all 4 quadrants, no guarding. Musculoskeletal: Normal range of motion all extremities, no calf tenderness, positive bilateral lower extremity pitting edema. Central nervous system: AAO x 3. Dermatologic: Skin warm and dry Assessment and plan: Patient is a 62-year-old female with past medical history significant for asthma, anemia, alcohol abuse, ascites, cardiomyopathy status post ICD placement, and CVA that presented to the emergency room with bilateral leg swelling for one and half weeks. 1. Acute on chronic systolic CHF exacerbation. 2-D echo per home economics expert on 02/08 showed left ventricle is mildly dilated, left ventricular systolic function is severely impaired, ejection fraction is 15-20%, severe global hypokinesis, mild mitral and tricuspid regurgitation (please see official read for full details). Cardiology following, recommendations appreciated. Continue ASA, Coreg , spironolactone, and Lasix. Monitor ins and outs. Monitor daily weights. 2. Ascites likely secondary to liver cirrhosis and alcohol abuse as well as systolic CHF. Continue Lasix and spironolactone. CT abdomen and pelvis on 2017 per radiologist showed cirrhotic liver, thrombosis of the splenic vein, evidence of chronic pancreatitis without acute pancreatitis, large volume intra- abdominal and pelvic ascites, diffuse cutaneous and subcutaneous edema/ anasarca. Possible paracentesis, follow up with IR. Patient counseled at length on alcohol cessation. 3. Edema/anasarca. Likely secondary to liver cirrhosis secondary to alcohol abuse and systolic CHF. Continue Lasix and spironolactone. Monitor daily weights. Lower extremity venous Dopplers negative for DVT. 4. C. difficile antigen positive. Diarrhea. Per patient, no diarrhea. Started on vancomycin by mouth. Protonix stopped. ID consulted, follow-up recommendations. Placed on isolation. Follow up repeat C. difficile antigen and toxin. Stool for Ova and parasite negative. Stool leukocytes negative. 5. Splenic vein thrombosis. Patient asymptomatic. Discussed with GI. Patient is high risk for bleeds. No anti-coagulation as per livestock trader Dr. Clifford. 6. Anemia. Downtrending. Will recheck hemoglobin. Transfuse if hemoglobin less than 8. Stool for occult blood pending 7. Hypomagnesemia. Resolved. Continue mag oxide. 8. Alcohol and tobacco abuse. Patient counseled at length on cessation. 9. History of asthma. Acute exacerbation. Continue nebulizer treatments as needed. 7. GI/DVT prophylaxis. Protonix and heparin. 8. DVT prophylaxis. SCDs and early ambulation. 9. Patient is a full code Case was discussed in detail with the patient regarding current diagnosis and treatment plan.
[2018-02-11 10:52] LABS: INR 1.41; PROTHROMBIN TIME 16.3 SECONDS (9.4-12.5)
[2018-02-11] MEDS: Magnesium Oxide 400 mg Tab UD PO SCH ×2 (11:06→17:50)
[2018-02-11] MEDS: Pantoprazole 40 mg EC Tab PO SCH (11:06)
[2018-02-11] MEDS: Vancomycin 25 MG/ML PO SCH ×3 (13:34→23:42)
[2018-02-11] MEDS ORDERED: Peg-Electrolyte Oral Soln 4L (Golytely) PO ONE (16:00)
--- NOTE | 2018-02-11 16:06 | CP.PCM.PN ---
Subjective - Date & Time of Evaluation Date of Evaluation: 02/11/18 Time of Evaluation: 09:50 - Subjective Subjective: S&E at bedside, chart reviewed, no acute overnight events reported as per nursing.Denies N/V, abdominal pain, had formed BM today, no melena or BRBPR. No SB or chest pain. Awaiting eval for paracentesis. Objective - Vital Signs/Intake and Output Vital Signs (last 24 hours): Temp Pulse Resp BP Pulse Ox 98.8 F 64 20 106/64 98 02/11/18 05:56 02/11/18 11:05 02/11/18 05:56 02/11/18 11:06 02/11/18 05:56 Intake and Output: 02/11/18 02/11/18 06:59 18:59 Intake Total 120 Balance 120 - Medications Medications: Current Medications Albuterol/Ipratropium (Duoneb 3 Mg/0.5 Mg (3 Ml) Ud) 3 ml IH Q6H PRN PRN Reason: Shortness of Breath Aspirin (Ecotrin) 81 mg PO DAILY [facility] Last Admin: 02/11/18 11:06 Dose: 81 mg Carvedilol (Coreg) 6.25 mg PO BID [facility] Last Admin: 02/11/18 11:05 Dose: 6.25 mg Furosemide (Lasix) 20 mg PO DAILY [facility] Last Admin: 02/11/18 11:06 Dose: 20 mg Magnesium Oxide (Mag-Ox) 400 mg PO BID [facility] Last Admin: 02/11/18 11:06 Dose: 400 mg Pantoprazole Sodium (Protonix Ec Tab) 40 mg PO DAILY [facility] Last Admin: 02/11/18 11:06 Dose: 40 mg Spironolactone (Aldactone) 25 mg PO BID [facility] Last Admin: 02/11/18 11:05 Dose: 25 mg Vancomycin HCl (Vancocin 25 Mg/Ml (Oral Use)) 250 mg PO QID [facility] PRN Reason: Protocol - Labs Labs: 02/11/18 05:30 02/10/18 06:30 PT 16.3 SECONDS (9.4-12.5) H 02/11/18 10:30 INR 1.41 02/11/18 10:30 APTT 42.6 Seconds (25.1-36.5) H 02/10/18 06:30 - Constitutional Appears: No Acute Distress - Eye Exam Eye Exam: Normal appearance. absent: Scleral icterus - ENT Exam ENT Exam: Mucous Membranes Moist - Neck Exam Neck Exam: Normal Inspection - Respiratory Exam Respiratory Exam: NORMAL BREATHING PATTERN. absent: Respiratory Distress - Cardiovascular Exam Cardiovascular Exam: +S1, +S2 - GI/Abdominal Exam GI & Abdominal Exam: Distended, Soft, Normal Bowel Sounds. absent: Guarding, Tenderness, Rebound - Extremities Exam Extremities Exam: absent: Calf Tenderness, Pedal Edema - Neurological Exam Neurological Exam: Alert, Awake, Oriented x3 - Skin Skin Exam: Dry, Warm Assessment and Plan - Assessment and Plan (Free Text) Assessment: Assessment: Ascities 2/2 decompensated cirrhosis? Decompensated cirrhosis 2/2 cardiac? vs ETOH CHF w/ defib, EF 16 % Splenic Vein thrombsis C Diff antigen positive Anemia, s/p blood transfusion Plan: eval for paracentesis with IR recommend fluid analysis: total protein, cell count w/ diff, albumin, grm stain continue PPI on Lasix and aldactone monitor electrolytes appreciate cardiology recommendation. Patient is high risk for EGD tentatively plan for EGD& colon02/12/18, will request for pre-anesthesia evaluation on oral vancomycin NPO after midnight, see orders for bowel prep Discussed w/ Dr Clifford covering for Dr. Varela.
[2018-02-11 17:04] LABS: BASO # 0.02 K/mm3 (0.0-2.0); BASO % 0.2 % (0.0-3.0); EOS # 0.2 (0.0-0.7); EOS % 1.8 % (1.5-5.0); GRAN # 4.31 (1.4-6.5); GRAN % 51.5 % (50.0-68.0); HEMOGLOBIN 8.3 g/dL (12.0-16.0); LYMPH # 3.2 (1.2-3.4); LYMPH % 37.7 % (22.0-35.0); MEAN CELL VOLUME 80.9 fl (80.0-105.0); MEAN CORPUSCULAR HEMOGLOBIN 27.4 pg (25.0-35.0); MEAN CORPUSCULAR HGB CONC 33.9 g/dl (31.0-37.0); MEAN PLATELET VOLUME 10.4 fl (7.0-11.0); MONO # 0.7 (0.1-0.6); MONO % 8.8 % (1.0-6.0); RBC 3.03 10^6/uL (3.5-6.1); RED CELL DISTRIBUTION WIDTH 19.1 % (11.5-14.5); WHITE BLOOD COUNT 8.4 10^3/ul (4.5-11.0)
[2018-02-12] MEDS: Pantoprazole 40 mg EC Tab PO SCH (06:40)
[2018-02-12 07:10] LABS: HEMOGLOBIN 8.7 g/dL (12.0-16.0); MEAN CELL VOLUME 80.2 fl (80.0-105.0); MEAN CORPUSCULAR HEMOGLOBIN 27.8 pg (25.0-35.0); MEAN CORPUSCULAR HGB CONC 34.7 g/dl (31.0-37.0); RBC 3.13 10^6/uL (3.5-6.1); RED CELL DISTRIBUTION WIDTH 19.4 % (11.5-14.5); WHITE BLOOD COUNT 7.9 10^3/ul (4.5-11.0)
[2018-02-12 07:14] LABS: INR 1.43; PROTHROMBIN TIME 16.6 SECONDS (9.4-12.5)
[2018-02-12 07:40] LABS: ALB/GLOB RATIO 0.5 (1.1-1.8); ALBUMIN 1.9 g/dL (3.0-4.8); ALT/SGPT 18 U/L (7-56); AST/SGOT 21 U/L (14-36); BLOOD UREA NITROGEN 12 mg/dL (7-21); CALCIUM 7.7 mg/dL (8.4-10.5); GFR AFRICAN-AMERICAN > 60; GFR NON-AFRICAN AMERICAN 50
--- NOTE | 2018-02-12 07:50 | CP.PCM.PN ---
<Angelica Gomezjed - Last Filed: 02/12/18 15:34> Subjective - Date & Time of Evaluation Date of Evaluation: 02/12/18 Time of Evaluation: 12:49 - Subjective Subjective: Haley Gomez PGY1 Progress Note for Dr. Dasha Pate Ms. Nowak was examined at bedside this morning. She reported improvement of the swelling in her legs. She reported many bowel movements of water stool over night, which she attributes to the bowel prep. She denies any dizziness, shortness of breath, chest pain, abdominal pain, nausea, vomiting, or dysuria. Objective - Vital Signs/Intake and Output Vital Signs (last 24 hours): Temp Pulse Resp BP Pulse Ox 98 F 63 17 118/69 97 02/12/18 00:01 02/12/18 02:00 02/12/18 00:01 02/12/18 00:01 02/12/18 00:01 Intake and Output: 02/12/18 02/12/18 06:59 18:59 Intake Total 940 Balance 940 - Medications Medications: Current Medications Albuterol/Ipratropium (Duoneb 3 Mg/0.5 Mg (3 Ml) Ud) 3 ml IH Q6H PRN PRN Reason: Shortness of Breath Aspirin (Ecotrin) 81 mg PO DAILY [facility] Last Admin: 02/11/18 11:06 Dose: 81 mg Carvedilol (Coreg) 6.25 mg PO BID [facility] Last Admin: 02/11/18 17:50 Dose: 6.25 mg Furosemide (Lasix) 20 mg PO DAILY [facility] Last Admin: 02/11/18 11:06 Dose: 20 mg Magnesium Oxide (Mag-Ox) 400 mg PO BID [facility] Last Admin: 02/11/18 17:50 Dose: 400 mg Pantoprazole Sodium (Protonix Ec Tab) 40 mg PO 0600 [facility] Last Admin: 02/12/18 06:40 Dose: Not Given Spironolactone (Aldactone) 25 mg PO BID [facility] Last Admin: 02/11/18 17:50 Dose: 25 mg Vancomycin HCl (Vancocin 25 Mg/Ml (Oral Use)) 250 mg PO QID [facility] PRN Reason: Protocol Last Admin: 02/11/18 23:42 Dose: 250 mg - Labs Labs: 02/12/18 06:30 02/12/18 06:30 PT 16.6 SECONDS (9.4-12.5) H 02/12/18 06:30 INR 1.43 02/12/18 06:30 APTT 42.6 Seconds (25.1-36.5) H 02/10/18 06:30 - Constitutional Appears: Well, No Acute Distress - Head Exam Head Exam: ATRAUMATIC, NORMOCEPHALIC - Eye Exam Eye Exam: EOMI Pupil Exam: NORMAL ACCOMODATION - Respiratory Exam Respiratory Exam: Clear to Ausculation Bilateral, NORMAL BREATHING PATTERN. absent: Rales, Rhonchi, Wheezes, Stridor - Cardiovascular Exam Cardiovascular Exam: REGULAR RHYTHM, +S1, +S2 - GI/Abdominal Exam GI & Abdominal Exam: Distended, Soft, Normal Bowel Sounds. absent: Firm, Tenderness - Extremities Exam Extremities Exam: Pedal Edema. absent: Tenderness - Back Exam Back Exam: NORMAL INSPECTION - Neurological Exam Neurological Exam: Alert, Awake, Oriented x3 - Psychiatric Exam Psychiatric exam: Normal Affect, Normal Mood - Skin Skin Exam: Normal Color Assessment and Plan - Assessment and Plan (Free Text) Assessment: 62 year old female with past medical history of asthma, cardiomyopathy s/p pacemaker, and stroke presents with leg swelling and abdominal distention. Plan: Ascites likely 2/2 alcohol abuse - CT abdomen and pelvis: cirrhotic liver decreased in size as compared to previous with more irregular contour. Thrombosis of splenic vein. Calcifications and atrophic pancreas. Large volume intra-abdominal and pelvic ascites in peritoneum. Diffuse anasarca - CXR: no active disease - Lipase<10 due to atrophic pancreas - 02/12: Total protein: 5.8, Albumin: 1.9 - UDS: negative. Alcohol: <10 - CIWA: 0. Patient has had a CIWA of 0 this entire hospital stay. - Lasix 20 mg daily for diuresis. - I and Os: input 1840 ml - Daily Weights: stable at 115 from 115. - 02/12: PT: 16.6, INR: 1.43 - EGD and colonoscopy today as per GI, NPO and bowel prep last night - pending paracentesis by IR today - peritoneal fluid albumin, cell count, total protein, gram stain ordered for etiology of ascites as per GI - GI consulted- Dr. Varela, recs appreciated - Cardio consulted- Dr. Don, pt high cardio risk for EGD C. Diff Ag Positive - 02/11: C. diff antigen positive, toxin negative - stool leukocytes negative - pending repeat C.diff testing - communicated stool collection to nurse - ID consulted - start vanco 250 PO q6h - stool ova and parasites negative - stool culture pending - contact precautions Microcytic Anemia - 1 unit of PRBC given on 02/08 - Hgb 8.3 on 02/12 from 8.1 on 02/09. Baseline is 8-9 from 2013. - Continue to monitor - FOBT results pending Systolic Left Sided Congestive Heart Failure - Echo 02/08/18: EF 15-20%. Severe Global hypokinesis. Mild mitral regurgitation. Mild tricuspid regurgitation. Normal left ventricular thickness. - Last echo in 10/17: EF=18% - Troponin negative - aspirin 81 - continue coreg 6.[address] Don - lasix 20 mg daily - spironolactone 25 mg BID - BNP 02/07: 3780 - Cardiology consulted, Dr. Don - recs appreciated Splenic Vein Thrombosis - CT abdomen pelvis: thrombosis of splenic vein - No anticoagulation at this time, as per cardio - continue to monitor Hypotension 2/2 Cardiomyopathy-resolved - BP: 118/69 - continue coreg 6.[address] Don due to resolved hypotension. - Continue lasix and spironolactone as per cardiology. Hypomagnesia-resolved - M.7 02/11 from 1.5 02/08 - f/u AM labs - Continue Magnesium Oxide 400 mg BID Hypocalcemia - Ca: 7.7, corrected 9.4 - Continue to monitor Rule out DVT - Duplex ultrasound (02/07): no DVTs Asthma - duonebs PRN GI ppx: protonix 40 DVT ppx: SCD Patient seen and examined with Dr. Pate. <Dasha Pate - Last Filed: 02/13/18 07:41> Objective - Vital Signs/Intake and Output Vital Signs (last 24 hours): Temp Pulse Resp BP Pulse Ox 98.7 F 74 19 108/64 99 02/13/18 06:00 02/13/18 06:00 02/13/18 06:00 02/13/18 06:00 02/13/18 06:00 Intake and Output: 02/13/18 02/13/18 06:59 18:59 Intake Total 240 Balance 240 - Medications Medications: Current Medications Albuterol/Ipratropium (Duoneb 3 Mg/0.5 Mg (3 Ml) Ud) 3 ml IH Q6H PRN PRN Reason: Shortness of Breath Aspirin (Ecotrin) 81 mg PO DAILY [facility] Last Admin: 02/12/18 09:41 Dose: Not Given Carvedilol (Coreg) 6.25 mg PO BID [facility] Last Admin: 02/12/18 18:02 Dose: 6.25 mg Furosemide (Lasix) 20 mg PO DAILY [facility] Last Admin: 02/12/18 10:22 Dose: Not Given Magnesium Oxide (Mag-Ox) 400 mg PO BID [facility] Last Admin: 02/12/18 18:02 Dose: 400 mg Pantoprazole Sodium (Protonix Ec Tab) 40 mg PO 0600 [facility] Last Admin: 02/13/18 05:35 Dose: 40 mg Spironolactone (Aldactone) 25 mg PO BID [facility] Last Admin: 02/12/18 18:02 Dose: 25 mg Vancomycin HCl (Vancocin 25 Mg/Ml (Oral Use)) 250 mg PO QID [facility] PRN Reason: Protocol Last Admin: 02/12/18 22:30 Dose: 250 mg - Labs Labs: 02/12/18 06:30 02/12/18 06:30 PT 16.6 SECONDS (9.4-12.5) H 02/12/18 06:30 INR 1.43 02/12/18 06:30 APTT 42.6 Seconds (25.1-36.5) H 02/10/18 06:30 Attending/Attestation - Attestation I have personally seen and examined this patient.: Yes I have fully participated in the care of the patient.: Yes I have reviewed all pertinent clinical information, including history, physical exam and plan: Yes Notes (Text): Patient seen and examined by me at 10:15AM with resident 02/12/18. Case including HPI, physical exam, and assessment and plan discussed with resident. Agree with above with following additions/corrections. Patient states that she is feeling ok. States she had multiple episodes of diarrhea last over night secondary to bowel prep. She denies any blood in the stool. No abdominal pain, nausea, or vomiting. No headaches or dizziness. No change in vision. No lightheadedness. No fevers or chills. No chest pain or shortness of breath. No dysuria. Physical exam: Gen: Awake and alert sitting up in bed in no acute distress HEENT: Normocephalic, atraumatic. Extraocular muscles intact, pupils equal reactive. No scleral icterus. Oropharynx is pink and moist, no pharyngeal erythema or exudate appreciated. Poor dentition. Neck is supple. Cardiovascular: Normal rhythm. Normal S1, S2. No murmurs, rubs, or gallops appreciated Pulmonary: Normal respiratory effort. No rhonchi, rales or wheezing appreciated. Gastrointestinal: Soft, nontender, distended, positive bowel sounds all 4 quadrants, no guarding. Musculoskeletal: Normal range of motion all extremities, no calf tenderness, positive bilateral lower extremity pitting edema. Central nervous system: AAO x 3. Dermatologic: Skin warm and dry Assessment and plan: Patient is a 62-year-old female with past medical history significant for asthma, anemia, alcohol abuse, ascites, cardiomyopathy status post ICD placement, and CVA that presented to the emergency room with bilateral leg swelling for one and half weeks. 1. Acute on chronic systolic CHF exacerbation. Acute exacerbation resolving. Continue ASA, Coreg, spironolactone, and Lasix. 2-D echo per domestic travel consultant on 04/18 showed left ventricle is mildly dilated, left ventricular systolic function is severely impaired, ejection fraction is 15-20%, severe global hypokinesis, mild mitral and tricuspid regurgitation (please see official read for full details). Cardiology following, recommendations appreciated. Continue to monitor ins and outs. Continue to monitor daily weights. 2. Ascites likely secondary to liver cirrhosis and alcohol abuse as well as systolic CHF. Continue Lasix and spironolactone. Patient for possible paracentesis today. CT abdomen and pelvis on 02/07/2018 per radiologist showed cirrhotic liver, thrombosis of the splenic vein, evidence of chronic pancreatitis without acute pancreatitis, large volume intra-abdominal and pelvic ascites, diffuse cutaneous and subcutaneous edema/anasarca. Patient counseled at length on alcohol cessation. 3. Edema/anasarca. Likely secondary to liver cirrhosis secondary to alcohol abuse and systolic CHF. Continue Lasix and spironolactone. Continue to monitor daily weights. Lower extremity venous Dopplers negative for DVT. 4. C. difficile antigen positive. Continue PO vancomycin. ID consulted, follow- up recommendations. Continue on isolation. Follow up repeat C. difficile antigen and toxin. Stool for Ova and parasite negative. Stool leukocytes negative. 5. Splenic vein thrombosis. Patient asymptomatic. Discussed with GI. Patient is high risk for bleeds. No anti-coagulation as per railways assistant Dr. Clifford. 6. Anemia. H&H stable. Patient for EGD and colonoscopy today. 7. Hypomagnesemia. Resolved. Continue magnesium oxide. 8. Alcohol and tobacco abuse. Patient counseled at length on cessation. 9. History of asthma. Not in acute exacerbation. Continue nebulizer treatments as needed. 10. DVT prophylaxis. SCDs and early ambulation. 11. Patient is a full code Case was discussed in detail with the patient regarding current diagnosis and treatment plan.
--- NOTE | 2018-02-12 08:29 | PN ---
Copied To: Lico Clifford MD Attending MD: Lico Clifford MD ADDENDUM DATE: 02/11/2018 This is an addendum to a progress note dictated by Karis Grossman. I have personally seen this patient. I agree with Karis Grossman APN's assessment and plan. The patient is to have a large-volume paracentesis with Interventional Radiology as well as endoscopy and colonoscopy for evaluation of anemia planned for tomorrow. Lico Clifford MD
[2018-02-12] MEDS: Magnesium Oxide 400 mg Tab UD PO SCH ×2 (10:22→18:02)
[2018-02-12] MEDS: Vancomycin 25 MG/ML PO SCH ×4 (10:22→22:30)
[2018-02-12] MEDS ORDERED: Propofol 10 mg/ml Inj (20 ML) ONE (12:32)
[2018-02-12] MEDS ORDERED: Etomidate 20 mg/10ml Inj IV ONE (12:33)
[2018-02-12] MEDS ORDERED: Sodium Chloride 0.9% 1,000 ML IV SCH (13:15)
--- NOTE | 2018-02-12 13:39 | CP.PCM.CON ---
History of Present Illness - History of Present Illness History of Present Illness: 62 year old female with PMH of chronic CHF with EF 16% S/P AICD placement, CVA, history of alcohol abuse, chronic tobacco use initially came in to [facility] complaining of leg swelling and abdominal distention for the past 2 weeks. She is being treated for her CHF and while admitted she developed loose bowel movement. Stool for C. diff. was done which is positive for the antigen. She was started on PO vancomycin yesterday and the patient states that her diarrhea is improving. Infectious diseases consult is requested to further evaluate and manage. She denies fever or chills, no SOB is improving, no nausea or vomiting, no chest pain, no headache or dizziness, no abdominal pain and it is less distended, no dysuria. Review of Systems - Review of Systems All systems: reviewed and no additional remarkable complaints except (as per HPI ) Past Patient History - Infectious Disease Hx of Infectious Diseases: None - Tetanus Immunizations Tetanus Immunization: Unknown - Past Medical History & Family History Past Medical History?: Yes - Past Social History Smoking Status: Light Smoker < 10 Cigarettes Daily - CARDIAC Hx Cardiac Disorders: Yes Hx Hypertension: Yes Hx Pacemaker: Yes (with defibrillator/L side) - PULMONARY Hx Respiratory Disorders: Yes Hx Asthma: Yes Hx Bronchitis: Yes - NEUROLOGICAL HX Cerebrovascular Accident: Yes - HEENT Hx HEENT Problems: No - RENAL Hx Chronic Kidney Disease: No - ENDOCRINE/METABOLIC Hx Endocrine Disorders: No - HEMATOLOGICAL/ONCOLOGICAL Hx Blood Disorders: No - INTEGUMENTARY Hx Dermatological Problems: No - MUSCULOSKELETAL/RHEUMATOLOGICAL Hx Musculoskeletal Disorders: No Hx Falls: Yes - GASTROINTESTINAL Hx Gastrointestinal Disorders: No - GENITOURINARY/GYNECOLOGICAL Hx Genitourinary Disorders: No - PSYCHIATRIC Hx Psychophysiologic Disorder: No Hx Substance Use: No - SURGICAL HISTORY Hx Surgeries: Yes Other/Comment: L side pacemaker/defibrillator - ANESTHESIA Hx Anesthesia: Yes Hx Anesthesia Reactions: No Meds Allergies/Adverse Reactions: Allergies Allergy/AdvReac Type Severity Reaction Status Date / Time No Known Allergies Allergy Verified 11/19/17 08:17 - Medications Medications: Current Medications Albuterol/Ipratropium (Duoneb 3 Mg/0.5 Mg (3 Ml) Ud) 3 ml IH Q6H PRN PRN Reason: Shortness of Breath Aspirin (Ecotrin) 81 mg PO DAILY [facility] Last Admin: 02/11/18 11:06 Dose: 81 mg Carvedilol (Coreg) 6.25 mg PO BID [facility] Last Admin: 02/11/18 17:50 Dose: 6.25 mg Furosemide (Lasix) 20 mg PO DAILY [facility] Last Admin: 02/11/18 11:06 Dose: 20 mg Magnesium Oxide (Mag-Ox) 400 mg PO BID [facility] Last Admin: 02/11/18 17:50 Dose: 400 mg Spironolactone (Aldactone) 25 mg PO BID [facility] Last Admin: 02/11/18 17:50 Dose: 25 mg Vancomycin HCl (Vancocin 25 Mg/Ml (Oral Use)) 250 mg PO QID [facility] PRN Reason: Protocol Last Admin: 02/11/18 17:49 Dose: 250 mg Physical Exam - Constitutional Appears: No Acute Distress, Chronically Ill - Head Exam Head Exam: NORMAL INSPECTION - Neck Exam Neck exam: Negative for: Meningismus - Respiratory Exam Respiratory Exam: Decreased Breath Sounds - Cardiovascular Exam Cardiovascular Exam: +S1, +S2 - GI/Abdominal Exam GI & Abdominal Exam: Soft. absent: Tenderness Results - Vital Signs Recent Vital Signs: Last Vital Signs Temp 98.8 F 02/11/18 18:00 Pulse 70 02/11/18 18:00 Resp 18 02/11/18 18:00 BP 100/62 02/11/18 18:00 Pulse Ox 98 02/11/18 05:56 - Labs Result Diagrams: 02/12/18 06:30 02/12/18 06:30 Labs: Laboratory Results - last 24 hr 02/11/18 02/11/18 02/11/18 05:30 05:30 10:30 WBC 8.5 RBC 2.86 L Hgb 7.8 L Hct 23.1 L MCV 80.8 MCH 27.3 MCHC 33.8 RDW 19.2 H Plt Count 201 MPV 11.1 H Gran % 48.0 L Lymph % (Auto) 37.2 H Arthur % (Auto) 12.2 H Eos % (Auto) 2.2 Baso % (Auto) 0.4 Gran # 4.07 Lymph # (Auto) 3.2 Arthur # (Auto) 1.0 H Eos # (Auto) 0.2 Baso # (Auto) 0.03 PT 16.3 H INR 1.41 Magnesium 1.7 Blood Type Antibody Screen BBK History Checked 02/11/18 02/11/18 16:57 16:57 WBC 8.4 RBC 3.03 L Hgb 8.3 L Hct 24.5 L MCV 80.9 MCH 27.4 MCHC 33.9 RDW 19.1 H Plt Count 185 MPV 10.4 Gran % 51.5 Lymph % (Auto) 37.7 H Arthur % (Auto) 8.8 H Eos % (Auto) 1.8 Baso % (Auto) 0.2 Gran # 4.31 Lymph # (Auto) 3.2 Arthur # (Auto) 0.7 H Eos # (Auto) 0.2 Baso # (Auto) 0.02 PT INR Magnesium Blood Type B POSITIVE Antibody Screen Negative BBK History Checked Patient has bt Assessment & Plan - Assessment and Plan (Free Text) Plan: Assessment C. diff. associated diarrhea chronic CHF with EF 16% S/P AICD placement CVA history of alcohol abuse chronic tobacco use Plan Started PO Vancomycin and should complete 10-14 days of antibiotics will monitor clinically, monitor amount of diarrhea and number of bowel movements
[2018-02-13] MEDS: Pantoprazole 40 mg EC Tab PO SCH (05:35)
--- NOTE | 2018-02-13 08:32 | CP.PCM.PN ---
Subjective - Date & Time of Evaluation Date of Evaluation: 02/13/18 Time of Evaluation: 07:00 - Subjective Subjective: Stable on 2R. She feels OK. No CP or SOB. S/P GI procedures yesterday > noted. V/S noted. V. Paced. PE: Lungs: clear Cor: S1S2 Abd.: soft. + ascites Ext.: less edema Neuro.: alert Labs 02/12 noted: H/H 8.7/25, Mg.++= 1.7, INR 1.43, K+= 4.9 Echo: Severe LVD. See report. EGD and colonoscopy noted. No varices. No bleeding seen, etc. Objective - Vital Signs/Intake and Output Vital Signs (last 24 hours): Temp Pulse Resp BP Pulse Ox 98.7 F 74 19 108/64 99 02/13/18 06:00 02/13/18 06:00 02/13/18 06:00 02/13/18 06:00 02/13/18 06:00 Intake and Output: 02/13/18 02/13/18 06:59 18:59 Intake Total 240 Balance 240 - Medications Medications: Current Medications Albuterol/Ipratropium (Duoneb 3 Mg/0.5 Mg (3 Ml) Ud) 3 ml IH Q6H PRN PRN Reason: Shortness of Breath Aspirin (Ecotrin) 81 mg PO DAILY [facility] Last Admin: 02/12/18 09:41 Dose: Not Given Carvedilol (Coreg) 6.25 mg PO BID [facility] Last Admin: 02/12/18 18:02 Dose: 6.25 mg Furosemide (Lasix) 20 mg PO DAILY [facility] Last Admin: 02/12/18 10:22 Dose: Not Given Magnesium Oxide (Mag-Ox) 400 mg PO BID [facility] Last Admin: 02/12/18 18:02 Dose: 400 mg Pantoprazole Sodium (Protonix Ec Tab) 40 mg PO 0600 [facility] Last Admin: 02/13/18 05:35 Dose: 40 mg Spironolactone (Aldactone) 25 mg PO BID [facility] Last Admin: 02/12/18 18:02 Dose: 25 mg Vancomycin HCl (Vancocin 25 Mg/Ml (Oral Use)) 250 mg PO QID [facility] PRN Reason: Protocol Last Admin: 02/12/18 22:30 Dose: 250 mg - Labs Labs: 02/12/18 06:30 02/12/18 06:30 PT 16.6 SECONDS (9.4-12.5) H 02/12/18 06:30 INR 1.43 02/12/18 06:30 APTT 42.6 Seconds (25.1-36.5) H 02/10/18 06:30 Assessment and Plan - Assessment and Plan (Free Text) Assessment: Edema/Ascites CCM with severe LVD ICD Cirrhosis, probably etoh and/or cardiac related. Splenic vein thrombosis CVA ETOH Smoker Mild MR and TR on echo Diverticulosis. Plan: For paracentesis today. As per GI, medical team and Int. Radiology. Continue Coreg 6.25 BID. Titrate as jim. Continue Lasix/Spironolactone D/C ETOH: She agrees to this. D/C tobacco. She agrees to this. OOB/PT
--- NOTE | 2018-02-13 09:30 | PN ---
Copied To: Jeremiah Jo MD Attending MD: Jeremiah Jo MD DATE: 02/13/2018 SUBJECTIVE: The patient is in bed, seen earlier this morning in 276, bed 2. She has not had any diarrhea last night as per the nurse caring for the patient and the nurse states that the patient has not had any diarrhea throughout her entire shift. PHYSICAL EXAMINATION: VITAL SIGNS: On exam, temperature is 98, blood pressure is 108/60, respiratory rate of 19, heart rate of 74. HEENT: Examination of HEENT is unremarkable. NECK: Supple. LUNGS: Have decreased breath sounds. HEART: Normal S1, S2. ABDOMEN: Soft, nontender. LABORATORY DATA: Laboratory examination reveals a white count of 7.9, hemoglobin is 8.7, platelets of 184. BUN of 12, creatinine of 1.1. Urinalysis is noted and stool Clostridium difficile toxin is negative. The toxin is negative. The antigen is positive. The patient had ova and parasites sent. No ova or parasites seen. Stool cultures showed no Salmonella, no Shigella, no Campylobacter isolated. Review of orders reveals the patient to be on p.o. vancomycin. ASSESSMENT AND PLAN: A 62-year-old female, seen earlier in room 276, bed 2 with a history of chronic congestive heart failure, ejection fraction of 16%, is status post automatic implantable cardioverter-defibrillator placement, cerebrovascular accident, history of alcohol abuse, chronic tobacco use and with pseudomembranous colitis, on p.o. vancomycin, would complete 10-14 days of p.o. vancomycin. Once the patient has no diarrhea for 48-72 hours, may discontinue the isolation. Jeremiah Jo MD
--- NOTE | 2018-02-13 09:44 | CP.PCM.PN ---
<Haley Gomez - Last Filed: 02/13/18 14:24> Subjective - Date & Time of Evaluation Date of Evaluation: 02/13/18 Time of Evaluation: 13:31 - Subjective Subjective: Haley Gomez PGY1 Progress Note for Dr. Dasha Pate Ms. Nowak was examined at bedside this morning. She denied any complaints or overnight events. She reported improvement of abdominal distention and swelling of legs. She denied any dizziness, chest pain, abdominal pain, shortness of breath, nausea, vomiting, or dysuria. Pts sister Vandana at [phone] was called today and updated her on pt's stay. Objective - Vital Signs/Intake and Output Vital Signs (last 24 hours): Temp Pulse Resp BP Pulse Ox 98.7 F 74 19 108/64 99 02/13/18 06:00 02/13/18 06:00 02/13/18 06:00 02/13/18 06:00 02/13/18 06:00 Intake and Output: 02/13/18 02/13/18 06:59 18:59 Intake Total 240 Balance 240 - Medications Medications: Current Medications Albuterol/Ipratropium (Duoneb 3 Mg/0.5 Mg (3 Ml) Ud) 3 ml IH Q6H PRN PRN Reason: Shortness of Breath Aspirin (Ecotrin) 81 mg PO DAILY [facility] Last Admin: 02/12/18 09:41 Dose: Not Given Carvedilol (Coreg) 6.25 mg PO BID [facility] Last Admin: 02/12/18 18:02 Dose: 6.25 mg Furosemide (Lasix) 20 mg PO DAILY [facility] Last Admin: 02/12/18 10:22 Dose: Not Given Magnesium Oxide (Mag-Ox) 400 mg PO BID [facility] Last Admin: 02/12/18 18:02 Dose: 400 mg Pantoprazole Sodium (Protonix Ec Tab) 40 mg PO 0600 [facility] Last Admin: 02/13/18 05:35 Dose: 40 mg Spironolactone (Aldactone) 25 mg PO BID [facility] Last Admin: 02/12/18 18:02 Dose: 25 mg Vancomycin HCl (Vancocin 25 Mg/Ml (Oral Use)) 250 mg PO QID [facility] PRN Reason: Protocol Last Admin: 02/12/18 22:30 Dose: 250 mg - Labs Labs: 02/12/18 06:30 02/12/18 06:30 PT 16.6 SECONDS (9.4-12.5) H 02/12/18 06:30 INR 1.43 02/12/18 06:30 APTT 42.6 Seconds (25.1-36.5) H 02/10/18 06:30 - Constitutional Appears: Well, No Acute Distress - Head Exam Head Exam: ATRAUMATIC, NORMOCEPHALIC - Eye Exam Eye Exam: EOMI, PERRL Pupil Exam: NORMAL ACCOMODATION - ENT Exam ENT Exam: Mucous Membranes Moist - Respiratory Exam Respiratory Exam: Clear to Ausculation Bilateral, NORMAL BREATHING PATTERN. absent: Rales, Rhonchi, Wheezes - Cardiovascular Exam Cardiovascular Exam: REGULAR RHYTHM, +S1, +S2 - GI/Abdominal Exam GI & Abdominal Exam: Distended, Soft, Normal Bowel Sounds. absent: Firm, Tenderness Additional comments: distention improved from previous exam - Extremities Exam Extremities Exam: Pedal Edema. absent: Calf Tenderness, Tenderness - Back Exam Back Exam: NORMAL INSPECTION - Neurological Exam Neurological Exam: Alert, Awake, Oriented x3 - Psychiatric Exam Psychiatric exam: Normal Affect, Normal Mood - Skin Skin Exam: Normal Color Assessment and Plan - Assessment and Plan (Free Text) Assessment: 62 year old female with past medical history of asthma, cardiomyopathy s/p pacemaker, and stroke presents with leg swelling and abdominal distention. Plan: Ascites likely 2/2 alcohol abuse - CT abdomen and pelvis: cirrhotic liver decreased in size as compared to previous with more irregular contour. Thrombosis of splenic vein. Calcifications and atrophic pancreas. Large volume intra-abdominal and pelvic ascites in peritoneum. Diffuse anasarca - CXR: no active disease - Lipase<10 due to atrophic pancreas - 02/13: Total protein: 5.6, Albumin: 1.7 - UDS: negative. Alcohol: <10 - CIWA: 0. Patient has had a CIWA of 0 this entire hospital stay. - Lasix 20 mg daily for diuresis. - I and Os: input 1840ml - Daily Weights: 114 from 115. - 02/13: PT: 16, INR: 1.38 - EGD 02/12: small hiatal hernia. no bleeding noted. - Colonoscopy 02/12: some small diverticula in sigmoid colon, internal hemorrhoids. no bleeding noted. - paracentesis today: 50ml of clear straw colored fluid removed. - peritoneal fluid WBC: 187, RBC: 312, total cell count 100, neutrophils 5.3, lymphocytes 94.7 - pending peritoneal fluid albumin, gram stain for etiology of ascites as per GI - GI consulted- jamaal Weiss appreciated - Cardio consulted- Dr. Don, recs appreciated C. Diff Ag Positive - pt denies any diarrhea or hematochezia - 02/11: C. diff antigen positive, toxin negative - Repeat on 02/12: C. diff ag negative, toxin negative - stool leukocytes, ova, parasites negative - stool culture pending- continue vanco 250 PO q6h - complete 10-14 day tx, as per GI - contact precautions until 48hrs with no diarrhea, as per GI - ID consulted, Dr. Jo- seans appreciated Microcytic Anemia - 1 unit of PRBC given on 02/08 - Hgb 8.3 on 02/13 from 8.1 on 02/09. Baseline is 8- from 2013. - Continue to monitor - FOBT results pending Systolic Left Sided Congestive Heart Failure - Echo 02/08/18: EF 15-20%. Severe Global hypokinesis. Mild mitral regurgitation. Mild tricuspid regurgitation. Normal left ventricular thickness. - Last echo in 10/17: EF=18% - Troponin negative - aspirin 81 - continue coreg 6.[address] Don - lasix 20 mg daily - spironolactone 25 mg BID - BNP 02/07: 3780 - Cardiology consulted, Dr. Don - seans appreciated Splenic Vein Thrombosis - CT abdomen pelvis: thrombosis of splenic vein - No anticoagulation at this time, as per cardio - continue to monitor Hypotension 2/2 Cardiomyopathy-resolved - BP: 108/64 - continue coreg 6.[address] Don due to resolved hypotension. - Continue lasix and spironolactone as per cardiology. Hypomagnesia-resolved - M.7 02/11 from 1.5 02/08 - Continue Magnesium Oxide 400 mg BID Hypocalcemia - Ca: 7.8, corrected 9.6 - Continue to monitor Rule out DVT - Duplex ultrasound (02/07): no DVTs Asthma - duonebs PRN GI ppx: protonix 40 DVT ppx: SCD Patient seen and examined with Dr. Pate. <Dasha Pate R - Last Filed: 02/13/18 20:34> Objective - Vital Signs/Intake and Output Vital Signs (last 24 hours): Temp Pulse Resp BP Pulse Ox 97.1 F L 83 21 117/67 99 02/13/18 18:00 02/13/18 18:00 02/13/18 18:00 02/13/18 18:00 02/13/18 06:00 Intake and Output: 02/13/18 02/14/18 18:59 06:59 Intake Total 954 Balance 954 - Medications Medications: Current Medications Albuterol/Ipratropium (Duoneb 3 Mg/0.5 Mg (3 Ml) Ud) 3 ml IH Q6H PRN PRN Reason: Shortness of Breath Aspirin (Ecotrin) 81 mg PO DAILY [facility] Last Admin: 02/13/18 13:13 Dose: 81 mg Carvedilol (Coreg) 6.25 mg PO BID [facility] Last Admin: 02/13/18 17:46 Dose: 6.25 mg Furosemide (Lasix) 20 mg PO DAILY [facility] Last Admin: 02/13/18 13:13 Dose: 20 mg Magnesium Oxide (Mag-Ox) 400 mg PO BID [facility] Last Admin: 02/13/18 17:49 Dose: 400 mg Pantoprazole Sodium (Protonix Ec Tab) 40 mg PO 0600 [facility] Last Admin: 02/13/18 05:35 Dose: 40 mg Spironolactone (Aldactone) 25 mg PO BID [facility] Last Admin: 02/13/18 18:46 Dose: 25 mg Vancomycin HCl (Vancocin 25 Mg/Ml (Oral Use)) 250 mg PO QID [facility] PRN Reason: Protocol Last Admin: 02/13/18 17:47 Dose: 250 mg - Labs Labs: 02/13/18 10:10 02/13/18 10:10 PT 16.0 SECONDS (9.4-12.5) H 02/13/18 10:10 INR 1.38 02/13/18 10:10 APTT 42.6 Seconds (25.1-36.5) H 02/10/18 06:30 Attending/Attestation - Attestation I have personally seen and examined this patient.: Yes I have fully participated in the care of the patient.: Yes I have reviewed all pertinent clinical information, including history, physical exam and plan: Yes Notes (Text): Patient seen and examined by me at 10:45AM with resident. Case including HPI, physical exam, and assessment and plan discussed with resident. Agree with above with following additions/corrections. Patient states that she is feeling pretty good. Patient is s/p paracentesis. Patient denies any abdominal pain. Does not feel her abdomen is distended any more. Denies any diarrhea. No abdominal pain, nausea, or vomiting. No headaches or dizziness. No fevers or chills. No chest pain or shortness of breath. No dysuria. Physical exam: Gen: Awake and alert sitting up in bed in no acute distress HEENT: Normocephalic, atraumatic. Extraocular muscles intact, pupils equal reactive. No scleral icterus. Oropharynx is pink and moist, no pharyngeal erythema or exudate appreciated. Poor dentition. Neck is supple. Cardiovascular: Normal rhythm. Normal S1, S2. No murmurs, rubs, or gallops appreciated Pulmonary: Normal respiratory effort. No rhonchi, rales or wheezing appreciated. Gastrointestinal: Soft, nontender, nondistended, positive bowel sounds all 4 quadrants, no guarding. Musculoskeletal: Normal range of motion all extremities, no calf tenderness, positive bilateral lower extremity pitting edema. Central nervous system: AAO x 3. Dermatologic: Skin warm and dry Assessment and plan: Patient is a 62-year-old female with past medical history significant for asthma, anemia, alcohol abuse, ascites, cardiomyopathy status post ICD placement, and CVA that presented to the emergency room with bilateral leg swelling for one and half weeks. 1. Acute on chronic systolic CHF exacerbation. Acute exacerbation resolved. Continue ASA, Coreg, spironolactone, and Lasix. 2-D echo per media senior recruiter on 04/18 showed left ventricle is mildly dilated, left ventricular systolic function is severely impaired, ejection fraction is 15-20%, severe global hypokinesis, mild mitral and tricuspid regurgitation (please see official read for full details). Cardiology following, recommendations appreciated. Continue to monitor ins and outs. Continue to monitor daily weights. 2. Ascites likely secondary to liver cirrhosis and alcohol abuse as well as systolic CHF. Continue Lasix and spironolactone. Patient s/p paracentesis today with 60ml removed. Pending fluid analysis. CT abdomen and pelvis on 02/07/2018 per radiologist showed cirrhotic liver, thrombosis of the splenic vein, evidence of chronic pancreatitis without acute pancreatitis, large volume intra- abdominal and pelvic ascites, diffuse cutaneous and subcutaneous edema/ anasarca. Patient counseled at length on alcohol cessation. 3. Edema/anasarca. Likely secondary to liver cirrhosis secondary to alcohol abuse vs systolic CHF. Improved. Continue Lasix and spironolactone. Bilateral lower extremity venous Dopplers negative for DVT. 4. C. difficile antigen positive. Continue PO vancomycin. ID following, recommendations appreciated. Continue isolation. Pending repeat C. difficile antigen and toxin. Stool for Ova and parasite negative. Stool leukocytes negative. 5. Splenic vein thrombosis. Patient asymptomatic. Discussed with GI. Patient is high risk for bleeds. No anti-coagulation as per clay plant treater Dr. Clifford. 6. Anemia. H&H stable. Patient s/p EGD and colonoscopy which did not show any bleeds. Continue to monitor CBC 7. Hypomagnesemia. Resolved. Continue magnesium oxide. 8. Alcohol and tobacco abuse. Patient counseled at length on cessation. 9. History of asthma. Not in acute exacerbation. Continue nebulizer treatments as needed. 10. DVT prophylaxis. SCDs and early ambulation. 11. Patient is a full code Case was discussed in detail with the patient regarding current diagnosis and treatment plan.
[2018-02-13] MEDS: Magnesium Oxide 400 mg Tab UD PO SCH ×2 (10:33→17:49)
[2018-02-13] MEDS: Vancomycin 25 MG/ML PO SCH ×4 (10:34→21:56)
[2018-02-13 10:38] LABS: BASO # 0.02 K/mm3 (0.0-2.0); BASO % 0.2 % (0.0-3.0); EOS # 0.1 (0.0-0.7); EOS % 1.4 % (1.5-5.0); GRAN # 4.18 (1.4-6.5); GRAN % 50.6 % (50.0-68.0); HEMOGLOBIN 8.3 g/dL (12.0-16.0); LYMPH # 3.1 (1.2-3.4); LYMPH % 37.1 % (22.0-35.0); MEAN CELL VOLUME 81.6 fl (80.0-105.0); MEAN CORPUSCULAR HEMOGLOBIN 27.3 pg (25.0-35.0); MEAN CORPUSCULAR HGB CONC 33.5 g/dl (31.0-37.0); MEAN PLATELET VOLUME 11.2 fl (7.0-11.0); MONO # 0.9 (0.1-0.6); MONO % 10.7 % (1.0-6.0); RBC 3.04 10^6/uL (3.5-6.1); RED CELL DISTRIBUTION WIDTH 19.6 % (11.5-14.5); WHITE BLOOD COUNT 8.3 10^3/ul (4.5-11.0)
[2018-02-13 10:42] LABS: INR 1.38
[2018-02-13 10:50] LABS: ALB/GLOB RATIO 0.4 (1.1-1.8); ALBUMIN 1.7 g/dL (3.0-4.8); ALT/SGPT 15 U/L (7-56); AST/SGOT 18 U/L (14-36); BLOOD UREA NITROGEN 12 mg/dL (7-21); CALCIUM 7.8 mg/dL (8.4-10.5); GFR AFRICAN-AMERICAN > 60; GFR NON-AFRICAN AMERICAN 50
--- NOTE | 2018-02-13 11:24 | CP.PCM.PN ---
Subjective - Date & Time of Evaluation Date of Evaluation: 02/13/18 Time of Evaluation: 10:00 - Subjective Subjective: S&E at bedside, chart reviewed, no acute overnight events reported. EGD and colon done yesterday, no fever chills, N/V or abdominal pain. Denies diarrhea. Tolerating oral intake. No overt GI bleeding. Objective - Vital Signs/Intake and Output Vital Signs (last 24 hours): Temp Pulse Resp BP Pulse Ox 98.7 F 81 19 111/69 99 02/13/18 06:00 02/13/18 10:33 02/13/18 06:00 02/13/18 10:33 02/13/18 06:00 Intake and Output: 02/13/18 02/13/18 06:59 18:59 Intake Total 240 Balance 240 - Medications Medications: Current Medications Albuterol/Ipratropium (Duoneb 3 Mg/0.5 Mg (3 Ml) Ud) 3 ml IH Q6H PRN PRN Reason: Shortness of Breath Aspirin (Ecotrin) 81 mg PO DAILY [facility] Last Admin: 02/12/18 09:41 Dose: Not Given Carvedilol (Coreg) 6.25 mg PO BID [facility] Last Admin: 02/13/18 10:33 Dose: 6.25 mg Furosemide (Lasix) 20 mg PO DAILY [facility] Last Admin: 02/12/18 10:22 Dose: Not Given Magnesium Oxide (Mag-Ox) 400 mg PO BID [facility] Last Admin: 02/13/18 10:33 Dose: 400 mg Pantoprazole Sodium (Protonix Ec Tab) 40 mg PO 0600 [facility] Last Admin: 02/13/18 05:35 Dose: 40 mg Spironolactone (Aldactone) 25 mg PO BID [facility] Last Admin: 02/13/18 10:33 Dose: 25 mg Vancomycin HCl (Vancocin 25 Mg/Ml (Oral Use)) 250 mg PO QID [facility] PRN Reason: Protocol Last Admin: 02/13/18 10:34 Dose: 250 mg - Labs Labs: 02/13/18 10:10 02/13/18 10:10 PT 16.0 SECONDS (9.4-12.5) H 02/13/18 10:10 INR 1.38 02/13/18 10:10 APTT 42.6 Seconds (25.1-36.5) H 02/10/18 06:30 - Constitutional Appears: No Acute Distress - Head Exam Head Exam: NORMOCEPHALIC - Eye Exam Eye Exam: Normal appearance. absent: Scleral icterus - ENT Exam ENT Exam: Mucous Membranes Moist - Neck Exam Neck Exam: Normal Inspection - Respiratory Exam Respiratory Exam: NORMAL BREATHING PATTERN. absent: Respiratory Distress - Cardiovascular Exam Cardiovascular Exam: +S1, +S2 - GI/Abdominal Exam GI & Abdominal Exam: Distended, Soft, Normal Bowel Sounds. absent: Guarding, Tenderness, Rebound - Extremities Exam Extremities Exam: absent: Calf Tenderness, Pedal Edema - Neurological Exam Neurological Exam: Alert, Awake, Oriented x3 - Skin Skin Exam: Dry, Warm Assessment and Plan - Assessment and Plan (Free Text) Assessment: Assessment: Ascities 2/2 decompensated cirrhosis Decompensated cirrhosis 2/2 cardiac? vs ETOH CHF w/ defib, EF 16 % Splenic Vein thrombsis C Diff antigen positive Anemia, s/p blood transfusion, s/p EGD& colon: no varices,H/H, diverticulosis, no GI source of bleeding seen, no polyps, IH Plan: for paracentesis today recommend fluid analysis: total protein, cell count w/ diff, albumin, grm stain continue PPI on Lasix and aldactone monitor electrolytes on oral vancomycin diet as tolerated monitor h/h and for overt GI bleeding alcohol cessation Discussed w/ Dr Clifford covering for Dr. Varela.
[2018-02-13 11:34] LABS: BODY FLUID TYPE PERITONEAL/ASCITES
[2018-02-13 12:19] LABS: BF GROSS APPEARANCE CLEAR (CLEAR); BODY FLUID TOTAL COUNT 100 (0-0)
--- NOTE | 2018-02-13 16:33 | US ---
PROCEDURE: Ultrasound guided paracentesis. HISTORY: Cardiomyopathy. Previous alcohol abuse. Ascites with pain. Needs diagnostic paracentesis PHYSICIAN(S): Kwan Morgan MD. TECHNIQUE: The relative risks and indications for the procedure were explained to the patient and informed written consent obtained. Sonography of the abdomen was performed in a supine position. This revealed a small amount of non-loculated ascites, greatest in the right mid abdomen. A puncture site was selected and the area was prepped and draped in the usual sterile fashion. 1% Xylocaine was used to anesthetize the skin and soft tissues. 21 gauge needle was advanced into the right mid abdomen and 60 cc of clear, straw-colored fluid aspirated. The appropriate labs were sent. IMPRESSION: Ultrasound-guided diagnostic paracentesis in the right mid abdomen
[2018-02-14] MEDS: Pantoprazole 40 mg EC Tab PO SCH (05:57)
--- NOTE | 2018-02-14 08:20 | PN ---
Copied To: Lico Clifford MD Attending MD: Lico Clifford MD. ADDENDUM DATE: 02/13/2018 An addendum to a progress note performed by Karis Grossman APN. The patient is comfortable without any evidence of GI bleeding. She underwent a paracentesis, which revealed clear straw-colored fluid. We are awaiting chemistry and cell count. If this is negative, the patient can be discharged home with outpatient followup. Lico Clifford MD
[2018-02-14] MEDS: Vancomycin 25 MG/ML PO SCH ×4 (09:36→21:25)
[2018-02-14] MEDS: Magnesium Oxide 400 mg Tab UD PO SCH ×2 (09:36→17:15)
--- NOTE | 2018-02-14 11:22 | CP.PCM.PN ---
Subjective - Date & Time of Evaluation Date of Evaluation: 02/14/18 Time of Evaluation: 09:45 - Subjective Subjective: S&E at bedside, chart reviewed. No acute overnight events reported. Having BM, no diarrhea, having formed stool no c/o bleeding, s/p paracentesis yesterday,60 cc of straw colored fluid aspirated and analysis sent. No new complaints. Objective - Vital Signs/Intake and Output Vital Signs (last 24 hours): Temp Pulse Resp BP Pulse Ox 98.6 F 65 20 105/56 L 98 02/14/18 06:00 02/14/18 10:00 02/14/18 06:00 02/14/18 09:36 02/14/18 06:00 Intake and Output: 02/14/18 02/14/18 06:59 18:59 Intake Total 480 Balance 480 - Medications Medications: Current Medications Albuterol/Ipratropium (Duoneb 3 Mg/0.5 Mg (3 Ml) Ud) 3 ml IH Q6H PRN PRN Reason: Shortness of Breath Aspirin (Ecotrin) 81 mg PO DAILY [facility] Last Admin: 02/14/18 09:36 Dose: 81 mg Carvedilol (Coreg) 6.25 mg PO BID [facility] Last Admin: 02/14/18 09:36 Dose: Not Given Furosemide (Lasix) 20 mg PO DAILY [facility] Last Admin: 02/14/18 09:36 Dose: Not Given Magnesium Oxide (Mag-Ox) 400 mg PO BID [facility] Last Admin: 02/14/18 09:36 Dose: 400 mg Pantoprazole Sodium (Protonix Ec Tab) 40 mg PO 0600 [facility] Last Admin: 02/14/18 05:57 Dose: 40 mg Spironolactone (Aldactone) 25 mg PO BID [facility] Last Admin: 02/14/18 09:36 Dose: 25 mg Vancomycin HCl (Vancocin 25 Mg/Ml (Oral Use)) 250 mg PO QID [facility] PRN Reason: Protocol Last Admin: 02/14/18 09:36 Dose: 250 mg - Labs Labs: 02/13/18 10:10 02/13/18 10:10 PT 16.0 SECONDS (9.4-12.5) H 02/13/18 10:10 INR 1.38 02/13/18 10:10 APTT 42.6 Seconds (25.1-36.5) H 02/10/18 06:30 - Constitutional Appears: No Acute Distress - Head Exam Head Exam: NORMOCEPHALIC - Eye Exam Eye Exam: Normal appearance. absent: Scleral icterus - ENT Exam ENT Exam: Mucous Membranes Moist - Neck Exam Neck Exam: Normal Inspection - Respiratory Exam Respiratory Exam: NORMAL BREATHING PATTERN. absent: Respiratory Distress - Cardiovascular Exam Cardiovascular Exam: +S1, +S2 - GI/Abdominal Exam GI & Abdominal Exam: Soft, Normal Bowel Sounds. absent: Guarding, Tenderness, Rebound - Extremities Exam Extremities Exam: absent: Calf Tenderness, Pedal Edema - Neurological Exam Neurological Exam: Alert, Awake, Oriented x3 - Skin Skin Exam: Dry, Warm Assessment and Plan - Assessment and Plan (Free Text) Assessment: Assessment: Ascities 2/2 decompensated cirrhosis Decompensated cirrhosis 2/2 cardiac? vs ETOH CHF w/ defib, EF 16 % Splenic Vein thrombsis C Diff antigen positive Anemia, s/p blood transfusion, s/p EGD& colon: no varices,H/H, diverticulosis, no GI source of bleeding seen, no polyps, IH Plan: s/p paracentesis 60 cc FU fluid analysis continue PPI on Lasix and aldactone monitor electrolytes on oral vancomycin diet as tolerated monitor h/h and for overt GI bleeding alcohol cessation No further plans for GI intervention. Discussed w/ Dr Clifford covering for Dr. Varela.
--- NOTE | 2018-02-14 14:40 | PN ---
Copied To: Jeremiah Jo MD Attending MD: Jeremiah Jo MD DATE: 02/14/2018 SUBJECTIVE: The patient is in bed, in no acute distress, nontoxic. No fevers and chills. Seen earlier today. No diarrhea. OBJECTIVE: VITAL SIGNS: On exam, temperature is 98, blood pressure is 113/60, respiratory rate of 16. HEENT: Examination is unremarkable. NECK: Supple. LUNGS: Have decreased breath sounds. HEART: Normal S1, S2. ABDOMEN: Soft, nontender. DATA: Laboratory examination reveals a white count of 8.3, hemoglobin of 8, platelets of 175. Chemistries reveals a BUN of 12, creatinine is 1.1. Urinalysis is noted and fluid WBCs, fluid is noted. Toxicology is noted. Microbiology reveals C. diff and repeat one is negative, initial was positive. ASSESSMENT AND PLAN: This is a 62-year-old female with chronic congestive heart failure, ejection fraction of 16%, status post automated implantable cardioverter-defibrillator, cerebrovascular accident, history of alcohol abuse, chronic tobacco use history now with pseudomembranous colitis, on p.o. vancomycin, 10 to 14 days of vancomycin. The patient for possible discharge today. Jeremiah Jo MD
--- NOTE | 2018-02-14 15:25 | CP.PCM.DIS ---
Provider - Provider Date of Admission: 02/07/18 17:21 Attending physician: Dasha Pate DO Primary care physician: Kat Haro DO Consults: GI ID IR Cardiology Time Spent in preparation of Discharge (in minutes): 70 Hospital Course - Lab Results Lab Results: Micro Results 02/13/18 11:30 Ascitic Fluid Body Fluid Culture - Preliminary NO GROWTH AFTER 24 HOURS 02/12/18 19:21 Stool C. difficile Antigen & Toxin A,B (M - Final 02/10/18 08:15 Stool Stool Culture - Final NO SALMONELLA, SHIGELLA OR CAMPYLOBACTER ISOLATED. 02/10/18 08:16 Stool Ova and Parasite Concentrate Exam - Final 02/10/18 08:16 Stool C. difficile Antigen & Toxin A,B (M - Final Most Recent Lab Values WBC 8.3 10^3/ul (4.5-11.0) 02/13/18 10:10 RBC 3.04 10^6/uL (3.5-6.1) L 02/13/18 10:10 Hgb 8.3 g/dL (12.0-16.0) L 02/13/18 10:10 Hct 24.8 % (36.0-48.0) L 02/13/18 10:10 MCV 81.6 fl (80.0-105.0) 02/13/18 10:10 MCH 27.3 pg (25.0-35.0) 02/13/18 10:10 MCHC 33.5 g/dl (31.0-37.0) 02/13/18 10:10 RDW 19.6 % (11.5-14.5) H 02/13/18 10:10 Plt Count 175 10^3/uL (120.0-450.0) 02/13/18 10:10 MPV 11.2 fl (7.0-11.0) H 02/13/18 10:10 Gran % 50.6 % (50.0-68.0) 02/13/18 10:10 Lymph % (Auto) 37.1 % (22.0-35.0) H 02/13/18 10:10 [place] % (Auto) 10.7 % (1.0-6.0) H 02/13/18 10:10 Eos % (Auto) 1.4 % (1.5-5.0) L 02/13/18 10:10 Baso % (Auto) 0.2 % (0.0-3.0) 02/13/18 10:10 Gran # 4.18 (1.4-6.5) 02/13/18 10:10 Lymph # (Auto) 3.1 (1.2-3.4) 02/13/18 10:10 [place] # (Auto) 0.9 (0.1-0.6) H 02/13/18 10:10 Eos # (Auto) 0.1 (0.0-0.7) 02/13/18 10:10 Baso # (Auto) 0.02 K/mm3 (0.0-2.0) 02/13/18 10:10 PT 16.0 SECONDS (9.4-12.5) H 02/13/18 10:10 INR 1.38 02/13/18 10:10 APTT 42.6 Seconds (25.1-36.5) H 02/10/18 06:30 Sodium 139 mmol/L (132-148) 02/13/18 10:10 Potassium 5.1 mmol/L (3.6-5.0) H 02/13/18 10:10 Chloride 110 mmol/L (98-107) H 02/13/18 10:10 Carbon Dioxide 25 mmol/L (21-33) 02/13/18 10:10 Anion Gap 9 (10-20) L 02/13/18 10:10 BUN 12 mg/dL (7-21) 02/13/18 10:10 Creatinine 1.1 mg/dl (0.7-1.2) 02/13/18 10:10 Est GFR ( Amer) > 60 02/13/18 10:10 Est GFR (Non-Af Amer) 50 02/13/18 10:10 Random Glucose 94 mg/dL (70-110) 02/13/18 10:10 Calcium 7.8 mg/dL (8.4-10.5) L 02/13/18 10:10 Phosphorus 3.6 mg/dL (2.5-4.5) 02/08/18 06:45 Magnesium 1.7 mg/dL (1.7-2.2) 02/11/18 05:30 Total Bilirubin 0.5 mg/dL (0.2-1.3) 02/13/18 10:10 AST 18 U/L (14-36) 02/13/18 10:10 ALT 15 U/L (7-56) 02/13/18 10:10 Alkaline Phosphatase 62 U/L (38-126) 02/13/18 10:10 Troponin I < 0.01 ng/mL 02/07/18 14:55 NT-Pro-B Natriuret Pep 3780 pg/mL (0-450) H 02/07/18 14:55 Total Protein 5.6 g/dL (5.8-8.3) L 02/13/18 10:10 Albumin 1.7 g/dL (3.0-4.8) L 02/13/18 10:10 Globulin 3.8 gm/dL 02/13/18 10:10 Albumin/Globulin Ratio 0.4 (1.1-1.8) L 02/13/18 10:10 Lipase < 10 U/L (23-300) L 02/07/18 14:55 Urine Color Yellow (YELLOW) 02/09/18 06:35 Urine Appearance Sl cloudy (CLEAR) 02/09/18 06:35 Urine pH 7.0 (4.7-8.0) 02/09/18 06:35 Ur Specific [place] 1.010 (1.005-1.035) 02/09/18 06:35 Urine Protein Negative mg/dL (<30 mg/dL) 02/09/18 06:35 Urine Glucose (UA) Negative mg/dL (NEGATIVE) 02/09/18 06:35 Urine Ketones Negative mg/dL (NEGATIVE) 02/09/18 06:35 Urine Blood Trace-lysed (NEGATIVE) H 02/09/18 06:35 Urine Nitrate Negative (NEGATIVE) 02/09/18 06:35 Urine Bilirubin Negative (NEGATIVE) 02/09/18 06:35 Urine Urobilinogen 0.2 E.U./dL (<1 E.U./dL) 02/09/18 06:35 Ur Leukocyte Esterase Small Mary/uL (NEGATIVE) H 02/09/18 06:35 Urine RBC 1 - 3 /hpf (0-2) 02/09/18 06:35 Urine WBC 10 - 15 /hpf (0-6) 02/09/18 06:35 Ur Epithelial Cells 1 - 3 /hpf (0-5) 02/09/18 06:35 Amorphous Sediment Large 02/09/18 06:35 Urine Bacteria Few (NEG) 02/09/18 06:35 Fluid Source Peritoneal/ascites 02/13/18 11:30 Fluid Appearance Clear (CLEAR) 02/13/18 11:30 Fluid WBC 187.0 /uL (0.0-300.0) 02/13/18 11:30 Fluid RBC 312.0 /uL (0.0-0.0) H 02/13/18 11:30 Fluid Tot Cell Count 100 (0-0) H 02/13/18 11:30 Fluid Neutrophils 5.3 % (0-0) H 02/13/18 11:30 Fluid Lymphocytes 94.7 % (0-0) H 02/13/18 11:30 Fld Monocyte/Macrophag TEST NOT PERFORMED 02/13/18 11:30 Fluid Comment Yellow 02/13/18 11:30 Stool Leukocytes, Qual Negative (NEGATIVE) 02/10/18 08:15 Urine Opiates Screen Negative (NEGATIVE) 02/07/18 22:30 Urine Methadone Screen Negative (NEGATIVE) 02/07/18 22:30 Ur Barbiturates Screen Negative (NEGATIVE) 02/07/18 22:30 Ur Phencyclidine Scrn Negative (NEGATIVE) 02/07/18 22:30 Ur Amphetamines Screen Negative (NEGATIVE) 02/07/18 22:30 U Benzodiazepines Scrn Negative (NEGATIVE) 02/07/18 22:30 U Oth Cocaine Metabols Negative (NEGATIVE) 02/07/18 22:30 U Cannabinoids Screen Negative (NEGATIVE) 02/07/18 22:30 Alcohol, Quantitative < 10 mg/dL (0-10) 02/07/18 14:55 Blood Type B POSITIVE 02/11/18 16:57 Blood Type Confirm B POSITIVE 02/08/18 06:45 Antibody Screen Negative 02/11/18 16:57 Crossmatch See Detail 02/08/18 01:50 BBK History Checked Patient has bt 02/11/18 16:57 - Hospital Course Hospital Course: Ms. Nowak is a 62 year old female with a PMHx of asthma, anemia, ascites, cardiomyopathy s/p pacemaker placement in [facility] in 2004, and CVA 13 years ago who presented with complaints of bilateral leg swelling for one and half weeks. Patient reports some abdominal fullness and 4 nonbloody bowel movements a day, and denies fevers, chills, dizziness, headaches, vision changes , shortness of breath, chest pain, palpitations, nausea, vomiting, constipation , rash, recent travel, and sick contacts. Patient admits to good appetite but 25 -30 lb weight loss over last 3 months. In the ED, CT abdoment showed a cirrhotic liver which has decreased in size as compared to previous and countour is more irregular, thrombosis of the splenic vein, extensive calcifications and markidly atrophic pancreas. It also showed large volume intra-abdominal and pelvic ascites in peritoneum and diffuse anasarca. Pt was given lasix for diuresis. Pt was admitted for ascites. Upon admission, labs showed a hemoglobin of 6.3. Pt received 1 transfusion of packed red blood cells. Repeat Hb was 8.0. ECHO showed an EF of 15-20%, severe global hypokinesis. Mild mitral and tricuspid regurg. Cardiology was consulted and recommended lasix, spironolactone , and coreg. GI was consulted and recommended paracentesis with studies of the fluid, as well as EGD and colonoscopy. EGD showed a small hiatal hernia. Colonoscopy showed some small diverticula in sigmoid colon, internal hemorrhoids, and no bleeding. They recommended outpatient follow up. IR was consulted and recommended paracentesis. 60cc of clear straw-colored fluid was removed. Fluid studies were unremarkable for infection. Stool studies were positive for C. diff antigen, but toxin negative. ID was consulted and recommended contact precautions and vancomycin 250 PO q6h for total 10 days. Repeat studies were negative for both C.diff antigen and toxin. Pt had a potassium of 5.4. Spironolactone was discontinued. Potassium decreased to 5.1. Pt denied any diarrhea and reported improvement of her swelling. She was discharged with instructions on follow up appointments and newly prescribed medications. Patient comprehended instructions. Discharge Exam - Head Exam Head Exam: ATRAUMATIC, NORMOCEPHALIC - Eye Exam Eye Exam: EOMI, Normal appearance Pupil Exam: NORMAL ACCOMODATION - ENT Exam ENT Exam: Mucous Membranes Moist - Respiratory Exam Respiratory Exam: Clear to PA & Lateral, NORMAL BREATHING PATTERN. absent: Rhonchi, Wheezes, Stridor - Cardiovascular Exam Cardiovascular Exam: REGULAR RHYTHM, +S1, +S2. absent: Diastolic murmur, Systolic Murmur - GI/Abdominal Exam GI & Abdominal Exam: Normal Bowel Sounds, Soft. absent: Tenderness - Extremities Exam Extremities exam: pedal edema - Back Exam Back exam: NORMAL INSPECTION - Neurological Exam Neurological exam: Alert, Oriented x3 - Psychiatric Exam Psychiatric exam: Normal Affect, Normal Mood - Skin Skin Exam: Normal Color Discharge Plan - Discharge Medications Prescriptions: Aspirin [Ecotrin] 81 mg PO DAILY #14 tabec Carvedilol [Coreg] 6.25 mg PO BID #28 tab Furosemide [Lasix] 20 mg PO DAILY #14 tab Magnesium Oxide [Mag-Ox] 400 mg PO BID #14 tab Spironolactone [Aldactone] 25 mg PO BID #28 tab Vancomycin HCl [Vancocin HCl] 250 mg PO Q6H #26 capsule - Follow Up Plan Condition: FAIR Disposition: HOME/ ROUTINE Instructions: Low Cholesterol, Saturated Fat, and Trans Fat Diet , Heart Failure, Adult (DC), Cirrhosis (DC), Clostridium difficile (DC) Additional Instructions: Please follow up with your primary care physician within 3 to 5 days. Please follow up with gastroenterology, Dr. Beaulieu, within 1 to 2 weeks. Please follow up with cardiology Dr. Don within one week. Please take the following medications prescribed to you: Aspirin once a day Coreg twice a day Spironolactone twice a day Lasix once a day Magnesium twice a day for 1 week Vancomycin every 6 hours starting with 2 doses today, then every 6 hours for 6 more days. Please abstain from drinking alcohol as it can worsen your condition. If your symptoms return, please return to the emergency department. Referrals: Codey Don MD [Staff Provider] - Hannah Varela MD [Medical Doctor] -
--- NOTE | 2018-02-14 15:37 | CP.PCM.PN ---
<PatriciaAyahmiqueljed - Last Filed: 02/14/18 16:26> Subjective - Date & Time of Evaluation Date of Evaluation: 02/14/18 Time of Evaluation: 15:33 - Subjective Subjective: Haley Gomez PGY1 Progress Note for Dr. Dasha Pate Ms. Nowak was examined at bedside this morning. She denied any overnight events. She reported some itching on the chest near the site of the paracentesis portal, but denied fever, chills, or pain. She denied any further episodes of diarrhea or blood in the stool. She denied any dizziness, shortness of breath, chest pain, nausea, vomiting, or dysuria. Objective - Vital Signs/Intake and Output Vital Signs (last 24 hours): Temp Pulse Resp BP Pulse Ox 98.5 F 87 18 113/68 98 02/14/18 12:00 02/14/18 12:00 02/14/18 12:00 02/14/18 12:00 02/14/18 06:00 Intake and Output: 02/14/18 02/14/18 06:59 18:59 Intake Total 480 Balance 480 - Medications Medications: Current Medications Albuterol/Ipratropium (Duoneb 3 Mg/0.5 Mg (3 Ml) Ud) 3 ml IH Q6H PRN PRN Reason: Shortness of Breath Aspirin (Ecotrin) 81 mg PO DAILY [facility] Last Admin: 02/14/18 09:36 Dose: 81 mg Carvedilol (Coreg) 6.25 mg PO BID [facility] Last Admin: 02/14/18 09:36 Dose: Not Given Furosemide (Lasix) 20 mg PO DAILY [facility] Last Admin: 02/14/18 09:36 Dose: Not Given Magnesium Oxide (Mag-Ox) 400 mg PO BID [facility] Last Admin: 02/14/18 09:36 Dose: 400 mg Pantoprazole Sodium (Protonix Ec Tab) 40 mg PO 0600 [facility] Last Admin: 02/14/18 05:57 Dose: 40 mg Spironolactone (Aldactone) 25 mg PO BID [facility] Last Admin: 02/14/18 09:36 Dose: 25 mg - Labs Labs: 02/13/18 10:10 02/13/18 10:10 PT 16.0 SECONDS (9.4-12.5) H 02/13/18 10:10 INR 1.38 02/13/18 10:10 APTT 42.6 Seconds (25.1-36.5) H 02/10/18 06:30 - Constitutional Appears: Well, No Acute Distress - Head Exam Head Exam: ATRAUMATIC, NORMOCEPHALIC - Eye Exam Eye Exam: EOMI, PERRL - Respiratory Exam Respiratory Exam: Clear to Ausculation Bilateral, NORMAL BREATHING PATTERN. absent: Rales, Rhonchi, Wheezes - Cardiovascular Exam Cardiovascular Exam: REGULAR RHYTHM, +S1, +S2 - GI/Abdominal Exam GI & Abdominal Exam: Soft, Tenderness, Normal Bowel Sounds. absent: Distended, Firm, Guarding Additional comments: paracentesis site clean dry and intact - Extremities Exam Extremities Exam: absent: Tenderness Additional comments: b/l lower leg edema, improved from yesterday - Neurological Exam Neurological Exam: Alert, Normal Gait, Oriented x3 - Psychiatric Exam Psychiatric exam: Normal Affect, Normal Mood - Skin Skin Exam: Normal Color Assessment and Plan - Assessment and Plan (Free Text) Assessment: 62 year old female with past medical history of asthma, cardiomyopathy s/p pacemaker, and stroke presents with leg swelling and abdominal distention. Plan: Ascites likely 2/2 alcohol abuse - CT abdomen and pelvis: cirrhotic liver decreased in size as compared to previous with more irregular contour. Thrombosis of splenic vein. Calcifications and atrophic pancreas. Large volume intra-abdominal and pelvic ascites in peritoneum. Diffuse anasarca - CXR: no active disease - Lipase<10 due to atrophic pancreas - 02/14: Total protein: 6.8, Albumin: 2.2 - UDS: negative. Alcohol: <10 - CIWA: 0. Patient has had a CIWA of 0 this entire hospital stay. - Lasix 20 mg daily for diuresis. - I and Os: input 1434 - Daily Weights: 119 from 115. - 02/13: PT: 16, INR: 1.38 - EGD 02/12: small hiatal hernia. no bleeding noted. - Colonoscopy 02/12: some small diverticula in sigmoid colon, internal hemorrhoids. no bleeding noted. - paracentesis 02/13: 50ml of clear straw colored fluid removed. - peritoneal fluid WBC: 187, RBC: 312, total cell count 100, neutrophils 5.3, lymphocytes 94.7 - pending peritoneal fluid albumin - peritoneal fluid culture prelim negative - GI consulted- Dr. Varela, recs appreciated - Cardio consulted- Dr. Don, recs appreciated C. Diff Ag Positive - pt denies any diarrhea or hematochezia - 02/11: C. diff antigen positive, toxin negative - Repeat on 02/12: C. diff ag negative, toxin negative - stool leukocytes, ova, parasites negative - stool culture negative - continue vanco 250 PO q6h, complete 10-14 day tx, as per ID - d/c contact precautions - ID consulted, Dr. Jo- recs appreciated Hyperkalemia - K+ 5.4 today - possible etiology: spironolactone - d/c spironolactone - f/u 10 PM labs - treat if elevated Microcytic Anemia - 1 unit of PRBC given on 02/08 - Hgb 8.8 on 02/14 from 8.1 on 02/09. Baseline is 8-9 from 2013. - Continue to monitor - FOBT results pending Systolic Left Sided Congestive Heart Failure - Echo 02/08/18: EF 15-20%. Severe Global hypokinesis. Mild mitral regurgitation. Mild tricuspid regurgitation. Normal left ventricular thickness. - Last echo in 10/17: EF=18% - Troponin negative - aspirin 81 - coreg held today due to hypotension - lasix 20 mg daily - d/c spironolactone 25 mg BID - BNP 02/07: 3780 - Cardiology consulted, Dr. Don - recs appreciated Splenic Vein Thrombosis - CT abdomen pelvis: thrombosis of splenic vein - No anticoagulation at this time, as per cardio - continue to monitor Hypotension 2/2 Cardiomyopathy-resolved - BP: 105/56 - coreg held today for BP - continue coreg 6.25 BID upon elevation of BP - Continue lasix as per cardiology. - d/c spironolactone Hypomagnesia-resolved - M.7 02/11 from 1.5 02/08 - Continue Magnesium Oxide 400 mg BID Rule out DVT - Duplex ultrasound (02/07): no DVTs Asthma - duonebs PRN GI ppx: protonix 40 DVT ppx: SCD Patient seen and examined with Dr. Pate. <Dasha Pate - Last Filed: 02/16/18 12:02> Objective - Vital Signs/Intake and Output Vital Signs (last 24 hours): Temp Pulse Resp BP Pulse Ox 98.3 F 76 20 108/69 97 02/15/18 11:26 02/15/18 14:00 02/15/18 11:26 02/15/18 11:26 02/15/18 09:00 - Labs Labs: 02/15/18 12:00 02/15/18 06:30 PT 16.0 SECONDS (9.4-12.5) H 02/13/18 10:10 INR 1.38 02/13/18 10:10 APTT 42.6 Seconds (25.1-36.5) H 02/10/18 06:30 Attending/Attestation - Attestation I have personally seen and examined this patient.: Yes I have fully participated in the care of the patient.: Yes I have reviewed all pertinent clinical information, including history, physical exam and plan: Yes Notes (Text): Patient seen and examined by me at 10:30PM with resident 02/14/18 . Case including HPI, physical exam, and assessment and plan discussed with resident. Agree with above with following additions/corrections. Patient states that she is feeling ok. Wants to go home. Patient denies any abdominal pain, nausea, or vomiting. Patient is having regular bowel movements. No diarrhea. No headaches or dizziness. No fevers or chills. No chest pain or shortness of breath. No dysuria. Physical exam: Gen: Awake and alert sitting up in bed in no acute distress HEENT: Normocephalic, atraumatic. Extraocular muscles intact, pupils equal reactive. No scleral icterus. Oropharynx is pink and moist, no pharyngeal erythema or exudate appreciated. Poor dentition. Neck is supple. Cardiovascular: Normal rhythm. Normal S1, S2. No murmurs, rubs, or gallops appreciated Pulmonary: Normal respiratory effort. No rhonchi, rales or wheezing appreciated. Gastrointestinal: Soft, nontender, nondistended, positive bowel sounds all 4 quadrants, no guarding. Musculoskeletal: Normal range of motion all extremities, no calf tenderness, improving bilateral lower extremity pitting edema. Central nervous system: AAO x 3. Dermatologic: Skin warm and dry Assessment and plan: Patient is a 62-year-old female with past medical history significant for asthma, anemia, alcohol abuse, ascites, cardiomyopathy status post ICD placement, and CVA that presented to the emergency room with bilateral leg swelling for one and half weeks. 1. Hyperkalemia. Likely secondary to spironolactone. Spironolactone stopped. Will repeat labs and treat if still elevated. 2. Acute on chronic systolic CHF exacerbation. Acute exacerbation resolved. Continue ASA, Coreg, and Lasix. Spironolactone stopped. 2-D echo per pmo project manager on 02/08/18 showed left ventricle is mildly dilated, left ventricular systolic function is severely impaired, ejection fraction is 15-20% , severe global hypokinesis, mild mitral and tricuspid regurgitation (please see official read for full details). Cardiology following, recommendations appreciated. 3. Ascites likely secondary to liver cirrhosis and alcohol abuse as well as systolic CHF. Ascites resolved. Continue Lasix. Spironolactone stopped secondary to hyperkalemia. Patient s/p paracentesis today with 60ml removed. Pending fluid analysis. CT abdomen and pelvis on 02/07/2018 per radiologist showed cirrhotic liver, thrombosis of the splenic vein, evidence of chronic pancreatitis without acute pancreatitis, large volume intra-abdominal and pelvic ascites, diffuse cutaneous and subcutaneous edema/anasarca. Patient counseled at length on alcohol cessation. 4. Edema/anasarca. Likely secondary to liver cirrhosis secondary to alcohol abuse vs systolic CHF. Improved. Continue Lasix. Spironolactone stopped. Bilateral lower extremity venous Dopplers negative for DVT. 5. C. difficile antigen positive. Continue PO vancomycin per ID. ID following, recommendations appreciated. Continue isolation. Repeat C. difficile antigen and toxin negative. Stool for Ova and parasite negative. Stool leukocytes negative. 6. Splenic vein thrombosis. Patient asymptomatic. Discussed with GI. Patient is high risk for bleeds. No anti-coagulation as per pilot plant research technician Dr. Clifford. 7. Anemia. H&H stable. Patient s/p EGD and colonoscopy which did not show any bleeds. Continue to monitor CBC 8. Hypomagnesemia. Resolved. Continue magnesium oxide. 9. Alcohol and tobacco abuse. Patient counseled at length on cessation. 10. History of asthma. Not in acute exacerbation. Continue nebulizer treatments as needed. 11. DVT prophylaxis. SCDs and early ambulation. 12. Patient is a full code Case was discussed in detail with the patient regarding current diagnosis and treatment plan.
[2018-02-14 16:00] LABS: ALB/GLOB RATIO 0.5 (1.1-1.8); ALBUMIN 2.2 g/dL (3.0-4.8); ALT/SGPT 10 U/L (7-56); AST/SGOT 25 U/L (14-36); BLOOD UREA NITROGEN 12 mg/dL (7-21); CALCIUM 7.9 mg/dL (8.4-10.5); GFR AFRICAN-AMERICAN > 60; GFR NON-AFRICAN AMERICAN 50
[2018-02-14 16:20] LABS: BASO # 0.02 K/mm3 (0.0-2.0); BASO % 0.2 % (0.0-3.0); EOS # 0.1 (0.0-0.7); EOS % 1.3 % (1.5-5.0); GRAN # 4.45 (1.4-6.5); GRAN % 51.8 % (50.0-68.0); HEMOGLOBIN 8.8 g/dL (12.0-16.0); LYMPH # 3.2 (1.2-3.4); LYMPH % 36.6 % (22.0-35.0); MEAN CORPUSCULAR HEMOGLOBIN 27.4 pg (25.0-35.0); MEAN CORPUSCULAR HGB CONC 33.8 g/dl (31.0-37.0); MEAN PLATELET VOLUME 10.3 fl (7.0-11.0); MONO # 0.9 (0.1-0.6); MONO % 10.1 % (1.0-6.0); RBC 3.21 10^6/uL (3.5-6.1); RED CELL DISTRIBUTION WIDTH 19.3 % (11.5-14.5); WHITE BLOOD COUNT 8.6 10^3/ul (4.5-11.0)
[2018-02-14] MEDS ORDERED: Sod Polystyrene Sulf 15 gm/60 ml Susp PO STA (23:30)
[2018-02-15] MEDS: Pantoprazole 40 mg EC Tab PO SCH (05:15)
[2018-02-15 07:18] LABS: BASO # 0.01 K/mm3 (0.0-2.0); BASO % 0.1 % (0.0-3.0); EOS # 0.1 (0.0-0.7); EOS % 1.7 % (1.5-5.0); GRAN # 2.98 (1.4-6.5); GRAN % 42.6 % (50.0-68.0); HEMOGLOBIN 7.8 g/dL (12.0-16.0); LYMPH # 3.1 (1.2-3.4); MEAN CELL VOLUME 80.7 fl (80.0-105.0); MEAN CORPUSCULAR HEMOGLOBIN 26.9 pg (25.0-35.0); MEAN CORPUSCULAR HGB CONC 33.3 g/dl (31.0-37.0); MEAN PLATELET VOLUME 10.9 fl (7.0-11.0); MONO # 0.8 (0.1-0.6); MONO % 11.6 % (1.0-6.0); RBC 2.9 10^6/uL (3.5-6.1); RED CELL DISTRIBUTION WIDTH 19.5 % (11.5-14.5)
[2018-02-15 07:21] LABS: ALB/GLOB RATIO 0.5 (1.1-1.8); ALBUMIN 1.8 g/dL (3.0-4.8); CALCIUM 7.5 mg/dL (8.4-10.5)
--- NOTE | 2018-02-15 08:39 | PN ---
Copied To: Lico Clifford MD Attending MD: Lico Clifford MD ADDENDUM DATE: 02/14/2018 SUBJECTIVE: I personally examined this patient myself this morning. The patient is comfortable. This is an addendum to a progress note performed by YUSRA Serra. I agree with her recommendations and assessment. The patient had a paracentesis yesterday. This was a benign noninfectious appearing paracentesis with minimal polymorphonuclear cells. No further GI workup is planned at this time. The patient is stable from a GI standpoint and can be discharged home with follow up with her outside medical doctor, executive talent acquisition consultant. Lico Clifford MD : 02/14/2018 19:12:19
[2018-02-15] MEDS: Magnesium Oxide 400 mg Tab UD PO SCH (10:11)
--- NOTE | 2018-02-15 10:31 | CP.PCM.PN ---
Subjective - Date & Time of Evaluation Date of Evaluation: 02/15/18 Time of Evaluation: 09:45 - Subjective Subjective: S&E at bedside, chart reviewed, no acute overnight events reported. Denies diarrhea, no bleeding. Denies SOB or CP. Tolerating oral intake, no complaints. No N/V or abdominal pain. Objective - Vital Signs/Intake and Output Vital Signs (last 24 hours): Temp Pulse Resp BP Pulse Ox 97.5 F L 67 20 118/70 100 02/15/18 06:00 02/15/18 10:10 02/15/18 06:00 02/15/18 10:10 02/15/18 06:00 Intake and Output: 02/15/18 02/15/18 06:59 18:59 Intake Total 240 Balance 240 - Medications Medications: Current Medications Albuterol/Ipratropium (Duoneb 3 Mg/0.5 Mg (3 Ml) Ud) 3 ml IH Q6H PRN PRN Reason: Shortness of Breath Aspirin (Ecotrin) 81 mg PO DAILY [facility] Last Admin: 02/15/18 10:11 Dose: 81 mg Carvedilol (Coreg) 6.25 mg PO BID [facility] Last Admin: 02/15/18 10:10 Dose: 6.25 mg Furosemide (Lasix) 20 mg PO DAILY [facility] Last Admin: 02/15/18 10:10 Dose: 20 mg Magnesium Oxide (Mag-Ox) 400 mg PO BID [facility] Last Admin: 02/15/18 10:11 Dose: 400 mg Pantoprazole Sodium (Protonix Ec Tab) 40 mg PO 0600 [facility] Last Admin: 02/15/18 05:15 Dose: 40 mg Vancomycin HCl (Vancocin 25 Mg/Ml (Oral Use)) 250 mg PO QID [facility] PRN Reason: Protocol Last Admin: 02/14/18 21:25 Dose: 250 mg - Labs Labs: 02/15/18 06:30 02/15/18 06:30 PT 16.0 SECONDS (9.4-12.5) H 02/13/18 10:10 INR 1.38 02/13/18 10:10 APTT 42.6 Seconds (25.1-36.5) H 02/10/18 06:30 - Constitutional Appears: No Acute Distress - Eye Exam Eye Exam: Normal appearance. absent: Scleral icterus - ENT Exam ENT Exam: Mucous Membranes Moist - Neck Exam Neck Exam: Normal Inspection - Respiratory Exam Respiratory Exam: NORMAL BREATHING PATTERN. absent: Respiratory Distress - Cardiovascular Exam Cardiovascular Exam: +S1, +S2 - GI/Abdominal Exam GI & Abdominal Exam: Soft, Tenderness, Normal Bowel Sounds. absent: Guarding, Rebound - Extremities Exam Extremities Exam: absent: Calf Tenderness, Pedal Edema - Neurological Exam Neurological Exam: Alert, Awake, Oriented x3 - Skin Skin Exam: Dry, Warm Assessment and Plan - Assessment and Plan (Free Text) Assessment: Assessment: Ascites 2/2 decompensated cirrhosis Decompensated cirrhosis 2/2 cardiac? vs ETOH CHF w/ defib, EF 16 % Splenic Vein thrombsis C Diff antigen positive Anemia, s/p blood transfusion, s/p EGD& colon: no varices,H/H, diverticulosis, no GI source of bleeding seen, no polyps, IH Plan: s/p paracentesis 60 cc cytology culture, no growth continue PPI on Lasix and aldactone monitor electrolytes on oral vancomycin diet as tolerated monitor h/h and for overt GI bleeding alcohol cessation patient motivated No further plans for GI intervention, egd/colon negative for gi source of bleeding, no varices, will sign off, please reconsult as needed. Discussed w/ Dr Clifford covering for Dr. Varela.
[2018-02-15] MEDS: Vancomycin 25 MG/ML PO SCH ×2 (10:58→14:34)
[2018-02-15 11:26] VITALS: O2SAT 97
[2018-02-15 11:27] VITALS: BP 108/69; RESP 20; TEMP 98.3
[2018-02-15 12:25] LABS: HEMOGLOBIN 8.8 g/dL (12.0-16.0); MEAN CELL VOLUME 82.4 fl (80.0-105.0); MEAN CORPUSCULAR HEMOGLOBIN 27.2 pg (25.0-35.0); MEAN CORPUSCULAR HGB CONC 33.1 g/dl (31.0-37.0); PLATELET COUNT 100 10^3/uL (120.0-450.0); RBC 3.23 10^6/uL (3.5-6.1); RED CELL DISTRIBUTION WIDTH 19.4 % (11.5-14.5); WHITE BLOOD COUNT 7.4 10^3/ul (4.5-11.0)
--- NOTE | 2018-02-15 13:33 | CP.PCM.PN ---
Subjective - Date & Time of Evaluation Date of Evaluation: 02/15/18 Time of Evaluation: 11:10 - Subjective Subjective: Comfortable in bed, no fevers, not in distress. No more diarrhea. Objective - Vital Signs/Intake and Output Vital Signs (last 24 hours): Temp Pulse Resp BP Pulse Ox 97.5 F L 67 20 118/70 100 02/15/18 06:00 02/15/18 10:10 02/15/18 06:00 02/15/18 10:10 02/15/18 06:00 Intake and Output: 02/15/18 02/15/18 06:59 18:59 Intake Total 240 Balance 240 - Medications Medications: Current Medications Albuterol/Ipratropium (Duoneb 3 Mg/0.5 Mg (3 Ml) Ud) 3 ml IH Q6H PRN PRN Reason: Shortness of Breath Aspirin (Ecotrin) 81 mg PO DAILY [facility] Last Admin: 02/15/18 10:11 Dose: 81 mg Carvedilol (Coreg) 6.25 mg PO BID [facility] Last Admin: 02/15/18 10:10 Dose: 6.25 mg Furosemide (Lasix) 20 mg PO DAILY [facility] Last Admin: 02/15/18 10:10 Dose: 20 mg Magnesium Oxide (Mag-Ox) 400 mg PO BID [facility] Last Admin: 02/15/18 10:11 Dose: 400 mg Pantoprazole Sodium (Protonix Ec Tab) 40 mg PO 0600 [facility] Last Admin: 02/15/18 05:15 Dose: 40 mg Vancomycin HCl (Vancocin 25 Mg/Ml (Oral Use)) 250 mg PO QID [facility] PRN Reason: Protocol Last Admin: 02/14/18 21:25 Dose: 250 mg - Labs Labs: 02/15/18 06:30 02/15/18 06:30 PT 16.0 SECONDS (9.4-12.5) H 02/13/18 10:10 INR 1.38 02/13/18 10:10 APTT 42.6 Seconds (25.1-36.5) H 02/10/18 06:30 - Constitutional Appears: Chronically Ill - Head Exam Head Exam: NORMAL INSPECTION - Neck Exam Neck Exam: absent: Meningismus - Respiratory Exam Respiratory Exam: Decreased Breath Sounds - Cardiovascular Exam Cardiovascular Exam: +S1, +S2 - GI/Abdominal Exam GI & Abdominal Exam: Soft. absent: Tenderness Assessment and Plan - Assessment and Plan (Free Text) Plan: Assessment C. diff. associated diarrhea, clinically improving chronic CHF with EF 16% S/P AICD placement CVA history of alcohol abuse chronic tobacco use Plan continue PO Vancomycin and should complete 10-14 days of antibiotics (day 4 today)
[2018-02-15 15:02] VITALS: PULSE 76
[2018-02-15 21:55] LABS: TOTAL PROTEIN PERITONEAL FLUID <3.0 g/dL
== END 2018-02-15 16:47 | disposition home or self-care (01) | DRG 556 ==
LOC: ED 11:15 → ERH 17:21 → 2RSO 20:11
PROVIDERS: ADMIT Internal Medicine; ATTEND Hospitalist
PROC: 30233N1 Transfusion of Nonautologous Red Blood Cells into Peripheral Vein, Percutaneous Approach (ICD-10-PCS; 2018-02-08)
PROC: 0DJD8ZZ Inspection of Lower Intestinal Tract, Via Natural or Artificial Opening Endoscopic (ICD-10-PCS; 2018-02-12)
PROC: 0DJ08ZZ Inspection of Upper Intestinal Tract, Via Natural or Artificial Opening Endoscopic (ICD-10-PCS; 2018-02-12 12:00)
PROC: 0W9G3ZX Drainage of Peritoneal Cavity, Percutaneous Approach, Diagnostic (ICD-10-PCS; principal; 2018-02-13 11:00)
DX: K70.31 Alcoholic cirrhosis of liver with ascites (principal); I50.23 Acute on chronic systolic (congestive) heart failure; I11.0 Hypertensive heart disease with heart failure; A04.72 Enterocolitis due to Clostridium difficile, not specified as recurrent; I82.890 Acute embolism and thrombosis of other specified veins; I42.0 Dilated cardiomyopathy; E87.6 Hypokalemia; I08.1 Rheumatic disorders of both mitral and tricuspid valves; D50.9 Iron deficiency anemia, unspecified; K57.30 Diverticulosis of large intestine without perforation or abscess without bleeding; F10.10 Alcohol abuse, uncomplicated; K64.8 Other hemorrhoids; K86.1 Other chronic pancreatitis; E83.42 Hypomagnesemia; K44.9 Diaphragmatic hernia without obstruction or gangrene; J45.909 Unspecified asthma, uncomplicated; F17.210 Nicotine dependence, cigarettes, uncomplicated; Z86.73 Personal history of transient ischemic attack (TIA), and cerebral infarction without residual deficits; Z95.810 Presence of automatic (implantable) cardiac defibrillator